=== PATIENT | female | born 1935 | race Caucasian/White ===

== ENCOUNTER 2018-07-28 17:10 | Emergency (ER) | payer OTHER ==
--- NOTE | 2018-07-28 17:24 | PDOC ---
Rapid Medical Evaluation Time Seen by Provider: 07/28/18 17:22 Medical Evaluation: Allergies Allergy/AdvReac Type Severity Reaction Status Date / Time No Known Allergies Allergy Verified 07/28/18 17:20 07/28/18 17:22 HPI: sent by PCP Nathaniel Camarena for :resistent bacteria in urine IV abx? " PE: No distress ORDERS: Septic work up Discharge Disposition - Diagnosis UTI (urinary tract infection) - Referrals Referrals: Nathaniel Camarena MD [Primary Care Provider] - - Patient Instructions - Post Discharge Activity
[2018-07-28 17:42] VITALS: BP 119/68; PULSE 78; TEMP 98.2; BMI 24.6
--- NOTE | 2018-07-28 18:34 | PDOC ---
History of Present Illness - General Chief Complaint: Urinary Problem Stated Complaint: REF. BY DOCTOR Time Seen by Provider: 07/28/18 17:22 History Source: Patient, Family Exam Limitations: No Limitations - History of Present Illness Initial Comments: 07/28/18 18:34 82 year old woman with a history of HTN, HLD, DM, cholecystectomy who was sent to ED by PCP with reportedly resistant urine bacteria requiring IV abx. Patient has been afebrile and asymptomatic without abdominal pain, chest pain, shortness of breath, nausea, vomtiing, diarrhea ,constipatn. She does have occasional urinary incontinence and wears a diaper. She lives with her son and has no other complaints. Daughter reports that urine founds were reported after a routine follow up PCP appointment. Per doctors workup brought in by patient: found to have esbl susceptible to ertapenem, imipenem and pip/tazo. urine showed nitrite positive - 6 days ago urine lab Past History - Past Medical History Allergies/Adverse Reactions: Allergies Allergy/AdvReac Type Severity Reaction Status Date / Time No Known Allergies Allergy Verified 07/28/18 17:34 Home Medications: Ambulatory Orders Aspirin [ASA -] 81 mg PO DAILY 03/10/13 Meclizine HCl [Antivert -] 25 mg PO TID PRN 03/10/13 Metoprolol Succinate [Toprol XL -] 50 mg PO DAILY 03/10/13 Acetaminophen [Tylenol -] 500 mg PO Q4H PRN 04/17/15 Calcium Carbonate/Vitamin D3 [Calcium 500 + Vit D 200 Caplet] 1 each PO DAILY Canagliflozin [Invokana] 300 mg PO DAILY 04/17/15 Ergocalciferol (Vitamin D2) [Vitamin D] 50,000 unit PO WEEKLY 04/17/15 Escitalopram Oxalate [Lexapro -] 5 mg PO DAILY 04/17/15 Febuxostat [Uloric -] 40 mg PO DAILY 04/17/15 Glipizide Xl [Glucotrol Xl -] 5 mg PO DAILY 04/17/15 Linagliptin [Tradjenta] 5 mg PO DAILY 04/17/15 Olmesartan Medoxomil [Benicar -] 20 mg PO DAILY 04/17/15 Levofloxacin [Levaquin] 750 mg PO DAILY #14 tablet 04/27/15 Oxycodone HCl 5 mg PO TID PRN #10 tablet 04/27/15 metroNIDAZOLE [Flagyl -] 500 mg PO TID #42 tablet 04/27/15 Cardiac Disorders: Yes COPD: No Diabetes: Yes HTN: Yes Hypercholesterolemia: Yes - Surgical History Cholecystectomy: Yes - Immunization History Immunization Up to Date: Yes - Suicide/Smoking/Psychosocial Hx Smoking History: Never smoked Have you smoked in the past 12 months: No Hx Alcohol Use: No Drug/Substance Use Hx: No Substance Use Type: None Review of Systems - Review of Systems Able to Perform ROS?: Yes Comments:: 07/28/18 22:23 GENERAL/CONSTITUTIONAL: No fever or chills. No weakness. HEAD, EYES, EARS, NOSE AND THROAT: No change in vision. No ear pain or discharge. No sore throat. CARDIOVASCULAR: No chest pain or shortness of breath RESPIRATORY: No cough, wheezing, or hemoptysis. GASTROINTESTINAL: No nausea, vomiting, diarrhea or constipation. GENITOURINARY: No dysuria, frequency, or change in urination. MUSCULOSKELETAL: No joint or muscle swelling or pain. No neck or back pain. SKIN: No rash NEUROLOGIC: No headache, vertigo, loss of consciousness, or change in strength/ sensation. ENDOCRINE: No increased thirst. No abnormal weight change HEMATOLOGIC/LYMPHATIC: No anemia, easy bleeding, or history of blood clots. ALLERGIC/IMMUNOLOGIC: No hives or skin allergy Is the patient limited Irish proficient: No *Physical Exam - Vital Signs Last Vital Signs Temp Pulse Resp BP Pulse Ox 98.2 F 78 16 119/68 97 07/28/18 17:34 07/28/18 17:34 07/28/18 17:34 07/28/18 17:34 07/28/18 17:34 - Physical Exam Comments: 07/28/18 22:24 GENERAL: Awake, alert, and fully oriented, in no acute distress HEAD: No signs of trauma, normocephalic, atraumatic EYES: PERRLA, EOMI, sclera anicteric, conjunctiva clear ENT: oropharynx clear without exudates. Moist mucosa NECK: Normal ROM, supple LUNGS: No distress, speaks full sentences, clear to auscultation bilaterally HEART: Regular rate and rhythm, normal S1 and S2, no murmurs, rubs or gallops, peripheral pulses normal and equal bilaterally. ABDOMEN: Soft, nontender, normoactive bowel sounds. No guarding, no rebound. No masses EXTREMITIES : Normal inspection, Normal range of motion, no edema. No clubbing or cyanosis. NEUROLOGICAL: Cranial nerves II through XII grossly intact. Normal speech, no focal sensorimotor deficits SKIN: Warm, Dry, normal turgor, no rashes or lesions noted ED Treatment Course - LABORATORY CBC & Chemistry Diagram: 07/28/18 18:25 07/28/18 18:25 Medical Decision Making - Medical Decision Making 07/28/18 20:44 82 year old woman with a history of HTN, HLD, DM, cholecystectomy who was sent to ED by PCP with reportedly resistant urine bacteria requiring IV abx. Patient has been afebrile and asymptomatic without abdominal pain, chest pain, shortness of breath, nausea, vomtiing, diarrhea ,constipatn. She does have occasional urinary incontinence and wears a diaper. She lives with her son and has no other complaints. Daughter reports that urine founds were reported after a routine follow up PCP appointment. ED Course: patient with known uti cbc, cmp, vbg, lactic, blood cultures lactic elevated to 2.8 will 1L ns pending urine 07/28/18 22:22 urine negative patient with unremarkable workup stable for sdischarge and follow up outpatient *DC/Admit/Observation/Transfer Diagnosis at time of Disposition: Urinary problem - Discharge Dispostion Disposition: HOME Condition at time of disposition: Stable Decision to Admit order: No - Referrals Referrals: Nathaniel Camarena MD [Primary Care Provider] - - Patient Instructions Additional Instructions: You were evaluated in the ED for concern over urinary tract infection. You were evaluated in the ED and had a urine test that did not show and infection and blood tests that were largely unremarkable. Please follow up with your PCP within 1 week and bring a copy of your lab results. Return to the ED if you experience blood in the urine, fevers, profuse diarrhea , chest pain, or shortness of breath. - Post Discharge Activity Forms/Work/School Notes: Back to Work
[2018-07-28 19:06] LABS: VENOUS PC02 41.4 mmHg (41-51); VENOUS PH 7.37 (7.31-7.41); VENOUS PO2 45.6 mmHg (30-40)
[2018-07-28 19:09] LABS: BASO % 0.8 % (0-2.0); EOS % 8.2 % (0-4.5); HEMATOCRIT 36.7 % (32.4-45.2); HEMOGLOBIN 12.1 GM/dL (10.7-15.3); LYMPH % 33.5 % (8-40); MCH 30.2 pg (25.7-33.7); MCHC 33.1 g/dl (32.0-36.0); MEAN CELL VOLUME 91.3 fl (80-96); MEAN PLT VOLUME 8.2 fl (7.5-11.1); MONO % 13.3 % (3.8-10.2); NEUT % 44.2 % (42.8-82.8); PLATELET COUNT 317 K/MM3 (134-434); RBC 4.02 M/mm3 (3.60-5.2); RDW 13.9 % (11.6-15.6); WHITE BLOOD COUNT 8.7 K/mm3 (4.0-10.0)
[2018-07-28 19:36] LABS: INR 0.97 (0.83-1.09); PROTHROMBIN TIME (PATIENT) 11.4 SEC (9.7-13.0)
[2018-07-28 19:39] LABS: ACTIVATED PTT 29.3 SECONDS (25.2-36.5)
[2018-07-28 20:12] LABS: ALBUMIN 3.6 g/dl (3.4-5.0); ALK PHOS 107 U/L (45-117); ANION GAP 7 MMOL/L (8-16); BILIRUBIN,TOTAL 0.2 mg/dL (0.2-1); BLOOD UREA NITROGEN 17 mg/dL (7-18); CALCIUM 9.9 mg/dL (8.5-10.1); CHLORIDE 109 mmol/L (98-107); CO2 25 mmol/L (21-32); CREATININE 1.2 mg/dL (0.55-1.3); GLUCOSE,RANDOM 128 mg/dL (74-106); POTASSIUM 4.1 mmol/L (3.5-5.1); SGOT/AST 14 U/L (15-37); SGPT/ALT 20 U/L (13-61); SODIUM 141 mmol/L (136-145); TOT PROT 7.5 g/dl (6.4-8.2)
[2018-07-28] MEDS ORDERED: SODIUM CHLORIDE 1,000 ML IV SCH (20:45)
--- NOTE | 2018-07-28 20:53 | PDOC ---
Documentation entered by Jessica Ayon SCRIBE, acting as scribe for Harry Winston MD. Harry Winston MD: This documentation has been prepared by the Gabo moreira Daisy, SCRIBE, under my direction and personally reviewed by me in its entirety. I confirm that the documentation accurately reflects all work, treatment, procedures, and medical decision making performed by me. Attending Attestation - Resident Resident Name: Leticia West - ED Attending Attestation I have performed the following: I have examined & evaluated the patient, The case was reviewed & discussed with the resident, I agree w/resident's findings & plan - HPI HPI: 07/28/18 19:22 The patient is a 82 YOF who was brought in by her daughter for further evaluation of urine tests earlier today done by PCP. As per daughter, patient had a routine visit with Dr. Armstrong and was told she had resistant bacteria in the urine. She was sent to the ED for IV antibiotics. Daughter reports the patient has urinary incontinence and wears diapers. Allergies: NKDA - Physicial Exam PE: 07/28/18 20:51 Patient is awake and alert, well-appearing, in no distress Normocephalic, atraumatic PERRLA, EOMI CTA RRR Abdomen is soft, nontender, nondistended, no CVA tenderness bilaterally - Medical Decision Making 07/28/18 20:52 Patient is an 82-year-old female who presents with nitrite positive UTI from the PMDs office noted to be producing Escherichia coli which is ESBL positive. Patient is afebrile and asymptomatic. BUN/creatinine is within normal limit. Will obtain repeat UA/culture. Will reassess 07/28/18 22:26 Urinalysis is within normal limit without evidence of pyuria bacteriuria. CBC reveals no evidence of leukocytosis and patient remains asymptomatic. At this time, I do not believe treatment with broad-spectrum antibiotics is indicated. Will discharge.
[2018-07-28 21:43] LABS: URINE APPEARANCE CLEAR; URINE BILIRUBIN NEGATIVE (NEGATIVE); URINE COLOR YELLOW; URINE GLUCOSE (UA) 3+ (NEGATIVE); URINE KETONE NEGATIVE (NEGATIVE); URINE LEUK ESTERASE NEGATIVE (NEGATIVE); URINE NITRITE NEGATIVE (NEGATIVE); URINE PROTEIN NEGATIVE (NEGATIVE); URINE UROBILINOGEN 0.2 mg/dL (0.2-1.0)
--- NOTE | 2018-07-29 17:17 | EKG ---
Test Reason : Blood Pressure : / mmHG Vent. Rate : 074 BPM Atrial Rate : 074 BPM P-R Int : 184 ms QRS Dur : 080 ms QT Int : 396 ms P-R-T Axes : 046 -11 055 degrees QTc Int : 439 ms NORMAL SINUS RHYTHM NONSPECIFIC ST AND T WAVE ABNORMALITY ABNORMAL ECG WHEN COMPARED WITH ECG OF 31-JUL-2015 22:34, NO SIGNIFICANT CHANGE WAS FOUND Confirmed by DANIELA JEFFREY MD ([id number]) on 07/29/2018 5:17:08 PM Referred By: Confirmed By:DANIELA JEFFREY MD
== END 2018-07-28 22:44 | disposition home or self-care (01) ==
LOC: JER 17:10
DX: R82.71 Bacteriuria (principal); B96.89 Other specified bacterial agents as the cause of diseases classified elsewhere; I10 Essential (primary) hypertension; E11.9 Type 2 diabetes mellitus without complications; Z79.84 Long term (current) use of oral hypoglycemic drugs; E78.00 Pure hypercholesterolemia, unspecified
CPT/HCPCS: 36415; 71045-TC-FY; 80053; 81003; 82803; 83605; 84484; 85025; 85610; 85730; 87040; 87086; 93005; 93010; 99284-25; J7030

== ENCOUNTER 2021-10-18 08:31 | Inpatient (IN) | payer OTHER ==
[2021-10-18 09:17] LABS: BASO % 0.6 % (0-2.0); EOS % 1.6 % (0-4.5); HEMATOCRIT 37.2 % (32.4-45.2); HEMOGLOBIN 12.2 GM/dL (10.7-15.3); LYMPH % 13.9 % (8-40); MCH 30.1 pg (25.7-33.7); MCHC 32.7 g/dl (32.0-36.0); MEAN CELL VOLUME 91.9 fl (80-96); MEAN PLT VOLUME 7.6 fl (7.5-11.1); MONO % 9.8 % (3.8-10.2); NEUT % 74.1 % (42.8-82.8); PLATELET COUNT 378 10^3/uL (134-434); RBC 4.05 M/mm3 (3.60-5.2); RDW 17.2 % (11.6-15.6); WHITE BLOOD COUNT 8.6 K/mm3 (4.0-10.0)
[2021-10-18 09:21] LABS: INR 1.06 (0.83-1.09); PROTHROMBIN TIME (PATIENT) 12.2 SEC (9.7-13.0)
[2021-10-18 09:24] LABS: ACTIVATED PTT 28.8 SECONDS (25.2-36.5)
[2021-10-18 09:47] LABS: ALBUMIN 2.9 g/dl (3.4-5.0); BLOOD UREA NITROGEN 12.7 mg/dL (7-18); CALCIUM 9.5 mg/dL (8.5-10.1)
[2021-10-18 09:51] LABS: CREATININE 0.9 mg/dL (0.55-1.3)
[2021-10-18 09:52] LABS: BILIRUBIN,TOTAL 0.6 mg/dL (0.2-1); TOT PROT 7.7 g/dl (6.4-8.2)
[2021-10-18] MEDS ORDERED: ACETAMINOPHEN 1000 MG/100 ML BAG IVPB ONE (10:27)
[2021-10-18] MEDS ORDERED: ACETAMINOPHEN INJECTION 100 ML IVPB ONE (10:49)
[2021-10-18 10:58] LABS: EPI CELLS 6 /uL (0-25.1); HYALINE CASTS 0 /uL (0-3.1); PH,URINE 6.5 (5.0-8.0); URINE APPEARANCE CLEAR; URINE BACTERIA 5 /uL (0-1359); URINE BILIRUBIN NEGATIVE (NEGATIVE); URINE COLOR YELLOW; URINE GLUCOSE (UA) 3+ (NEGATIVE); URINE KETONE NEGATIVE (NEGATIVE); URINE LEUK ESTERASE TRACE (NEGATIVE); URINE NITRITE NEGATIVE (NEGATIVE); URINE PROTEIN NEGATIVE (NEGATIVE); URINE RBC 23 /uL (0-23.9); URINE WBC 79 /uL (0-25.8)
[2021-10-18 11:28] LABS: BLOOD UREA NITROGEN 12.3 mg/dL (7-18)
[2021-10-18 11:31] LABS: CREATININE 0.7 mg/dL (0.55-1.3)
[2021-10-18] MEDS ORDERED: ACETAMINOPHEN 325 MG TABLET (FP) PO PRN (16:58)
[2021-10-18] MEDS ORDERED: PNEUMOC 20-VAL CONJ-DIP CRM/PF 0.5 ML SYRINGE IM ONE (17:30)
[2021-10-18] MEDS: HEPARIN NA (PORCINE) 5,000 UNITS/ML 1ML VIAL SQ SCH (22:19)
[2021-10-18] MEDS: ROSUVASTATIN CA 5 MG TABLET PO SCH (22:19)
[2021-10-18] MEDS: INSULIN SLIDING SCALE (NOVOLOG) 1 VIAL SQ SCH (22:20)
[2021-10-19] MEDS: metFORMIN HCL 500 MG TABLET (FP) PO SCH ×2 (06:52→17:43)
[2021-10-19] MEDS: glipiZIDE-XL 10 MG TAB.ER.24 (FP) PO SCH (06:54)
[2021-10-19] MEDS: INSULIN SLIDING SCALE (NOVOLOG) 1 VIAL SQ SCH ×4 (07:23→22:34)
[2021-10-19 09:03] LABS: HEMATOCRIT 34.2 % (32.4-45.2); HEMOGLOBIN 11.5 GM/dL (10.7-15.3); MCH 30.4 pg (25.7-33.7); MCHC 33.6 g/dl (32.0-36.0); MEAN CELL VOLUME 90.6 fl (80-96); MEAN PLT VOLUME 7.4 fl (7.5-11.1); PLATELET COUNT 365 10^3/uL (134-434); RBC 3.77 M/mm3 (3.60-5.2); RDW 17.3 % (11.6-15.6); WHITE BLOOD COUNT 6.8 K/mm3 (4.0-10.0)
[2021-10-19 09:31] LABS: CALCIUM 8.8 mg/dL (8.5-10.1)
[2021-10-19 09:32] LABS: ALBUMIN 2.9 g/dl (3.4-5.0); BLOOD UREA NITROGEN 12.2 mg/dL (7-18)
[2021-10-19 09:34] LABS: BILIRUBIN,TOTAL 0.5 mg/dL (0.2-1)
[2021-10-19 09:35] LABS: CREATININE 0.8 mg/dL (0.55-1.3)
[2021-10-19] MEDS: ASPIRIN COATED 81 MG TABLET.EC PO SCH (10:36)
[2021-10-19] MEDS: ESCITALOPRAM OXALATE 10 MG TABLET PO SCH (10:36)
[2021-10-19] MEDS: PANTOPRAZOLE 40 MG TABLET PO SCH (10:36)
[2021-10-19] MEDS: LOSARTAN POTASSIUM 50 MG TABLET PO SCH (10:36)
[2021-10-19] MEDS: HEPARIN NA (PORCINE) 5,000 UNITS/ML 1ML VIAL SQ SCH ×2 (10:37→22:33)
[2021-10-19] MEDS: metoPROLOL SUCCINATE 25 MG TAB.SR.24H (FP) PO SCH (10:48)
[2021-10-19] MEDS: ROSUVASTATIN CA 5 MG TABLET PO SCH (22:33)
[2021-10-20 08:08] LABS: BASO % 0.7 % (0-2.0); EOS % 4.4 % (0-4.5); HEMATOCRIT 33.1 % (32.4-45.2); HEMOGLOBIN 11.3 GM/dL (10.7-15.3); LYMPH % 30.3 % (8-40); MCH 30.8 pg (25.7-33.7); MCHC 34.1 g/dl (32.0-36.0); MEAN CELL VOLUME 90.3 fl (80-96); MEAN PLT VOLUME 7.6 fl (7.5-11.1); NEUT % 51.6 % (42.8-82.8); PLATELET COUNT 361 10^3/uL (134-434); RBC 3.67 M/mm3 (3.60-5.2); RDW 17.1 % (11.6-15.6); WHITE BLOOD COUNT 6.6 K/mm3 (4.0-10.0)
[2021-10-20] MEDS: INSULIN SLIDING SCALE (NOVOLOG) 1 VIAL SQ SCH ×4 (08:08→21:04)
[2021-10-20 08:31] LABS: ALBUMIN 2.9 g/dl (3.4-5.0); BLOOD UREA NITROGEN 11.5 mg/dL (7-18); CALCIUM 8.8 mg/dL (8.5-10.1)
[2021-10-20 08:35] LABS: CREATININE 0.8 mg/dL (0.55-1.3)
[2021-10-20 08:36] LABS: BILIRUBIN,TOTAL 0.5 mg/dL (0.2-1); TOT PROT 6.9 g/dl (6.4-8.2)
[2021-10-20] MEDS: PANTOPRAZOLE 40 MG TABLET PO SCH (10:01)
[2021-10-20] MEDS: LOSARTAN POTASSIUM 50 MG TABLET PO SCH (10:01)
[2021-10-20] MEDS: HEPARIN NA (PORCINE) 5,000 UNITS/ML 1ML VIAL SQ SCH ×2 (10:01→21:03)
[2021-10-20] MEDS: metoPROLOL SUCCINATE 25 MG TAB.SR.24H (FP) PO SCH (10:01)
[2021-10-20] MEDS: ESCITALOPRAM OXALATE 10 MG TABLET PO SCH (10:01)
[2021-10-20] MEDS: ASPIRIN COATED 81 MG TABLET.EC PO SCH (10:01)
[2021-10-20] MEDS: glipiZIDE-XL 10 MG TAB.ER.24 (FP) PO SCH (10:04)
[2021-10-20] MEDS: metFORMIN HCL 500 MG TABLET (FP) PO SCH ×2 (10:04→16:12)
[2021-10-20] MEDS ORDERED: POTASSIUM CHLORIDE TABS 20 MEQ TABLET.ER (FP) PO ONE (15:32)
[2021-10-20] MEDS: ROSUVASTATIN CA 5 MG TABLET PO SCH (21:03)
[2021-10-21] MEDS: INSULIN SLIDING SCALE (NOVOLOG) 1 VIAL SQ SCH ×3 (06:44→16:36)
[2021-10-21] MEDS: metFORMIN HCL 500 MG TABLET (FP) PO SCH ×2 (06:44→16:35)
[2021-10-21 07:17] LABS: CALCIUM 9.2 mg/dL (8.5-10.1)
[2021-10-21 07:18] LABS: ALBUMIN 2.9 g/dl (3.4-5.0); BLOOD UREA NITROGEN 10.6 mg/dL (7-18)
[2021-10-21 07:21] LABS: CREATININE 1.1 mg/dL (0.55-1.3)
[2021-10-21 07:23] LABS: BILIRUBIN,TOTAL 0.3 mg/dL (0.2-1); TOT PROT 6.8 g/dl (6.4-8.2)
[2021-10-21 08:44] VITALS: RESP 18
[2021-10-21] MEDS: ESCITALOPRAM OXALATE 10 MG TABLET PO SCH (10:11)
[2021-10-21] MEDS: LOSARTAN POTASSIUM 50 MG TABLET PO SCH (10:11)
[2021-10-21] MEDS: ASPIRIN COATED 81 MG TABLET.EC PO SCH (10:11)
[2021-10-21] MEDS: metoPROLOL SUCCINATE 25 MG TAB.SR.24H (FP) PO SCH (10:12)
[2021-10-21] MEDS: PANTOPRAZOLE 40 MG TABLET PO SCH (10:12)
[2021-10-21] MEDS: HEPARIN NA (PORCINE) 5,000 UNITS/ML 1ML VIAL SQ SCH (10:12)
[2021-10-21 15:22] VITALS: BP 115/66; PULSE 75; TEMP 98.1
[2021-10-21 16:30] VITALS: BMI 18.1
== END 2021-10-21 18:27 | disposition home or self-care (01) | DRG 639 ==
LOC: JER 08:31 → JERBED 11:30 → J4W 15:41 → OBSVTOIN 16:55
PROVIDERS: ADMIT Family Medicine; ATTEND Family Medicine
DX: E11.649 Type 2 diabetes mellitus with hypoglycemia without coma (principal); E11.8 Type 2 diabetes mellitus with unspecified complications; N18.30 Chronic kidney disease, stage 3 unspecified; I12.9 Hypertensive chronic kidney disease with stage 1 through stage 4 chronic kidney disease, or unspecified chronic kidney disease; E11.22 Type 2 diabetes mellitus with diabetic chronic kidney disease; E78.00 Pure hypercholesterolemia, unspecified; E78.5 Hyperlipidemia, unspecified; R26.81 Unsteadiness on feet; R55 Syncope and collapse
CPT/HCPCS: 0241U-QW; 36415; 70450-TC; 71045-TC-FY; 72125-TC; 72170-TC-FY; 80048; 80053; 81003; 82550; 82962; 83036; 83880; 84439; 84443; 84484; 85025; 85027; 85610; 85730; 87086; 93005; 93010; 97116-GP; 97162-GP; 99285-25; G0378; J1644

== ENCOUNTER 2022-02-03 10:59 | Inpatient (IN) | payer OTHER ==
[2022-02-03] MEDS ORDERED: LACTATED RINGERS SOLUTION 1000 ML INFUS.BAG IV ONE (11:47)
[2022-02-03 13:04] LABS: BASO % 0.3 % (0-2.0); EOS % 0.1 % (0-4.5); HEMATOCRIT 36.5 % (32.4-45.2); HEMOGLOBIN 12.1 GM/dL (10.7-15.3); LYMPH % 10.5 % (8-40); MCH 30.3 pg (25.7-33.7); MCHC 33.1 g/dl (32.0-36.0); MEAN CELL VOLUME 91.4 fl (80-96); MEAN PLT VOLUME 8.4 fl (7.5-11.1); MONO % 8.5 % (3.8-10.2); NEUT % 80.6 % (42.8-82.8); PLATELET COUNT 412 10^3/uL (134-434); RDW 14.7 % (11.6-15.6); WHITE BLOOD COUNT 19.8 K/mm3 (4.0-10.0)
[2022-02-03 13:14] LABS: INR 1.13 (0.83-1.09)
[2022-02-03 13:16] LABS: ACTIVATED PTT 29.9 SECONDS (25.2-36.5)
[2022-02-03 13:21] LABS: CALCIUM 9.9 mg/dL (8.5-10.1)
[2022-02-03 13:22] LABS: ALBUMIN 3.4 g/dl (3.4-5.0); BLOOD UREA NITROGEN 12.3 mg/dL (7-18)
[2022-02-03 13:25] LABS: CREATININE 0.9 mg/dL (0.55-1.3)
[2022-02-03 13:27] LABS: BILIRUBIN,TOTAL 0.6 mg/dL (0.2-1); TOT PROT 8.3 g/dl (6.4-8.2)
[2022-02-03 17:27] LABS: VENOUS BASE EXCESS -0.9 mmol/L (-2-2); VENOUS O2 SATURATION 72.7 % (70-80); VENOUS PCO2 41.7 mmHg (38-52); VENOUS PH 7.382 (7.310-7.410)
[2022-02-03 17:31] LABS: EPI CELLS 11 /uL (0-25.1); HYALINE CASTS 0 /uL (0-3.1); URINE APPEARANCE CLEAR; URINE BACTERIA 23 /uL (0-1359); URINE BILIRUBIN NEGATIVE (NEGATIVE); URINE COLOR YELLOW; URINE GLUCOSE (UA) 3+ (NEGATIVE); URINE KETONE 1+ (NEGATIVE); URINE LEUK ESTERASE NEGATIVE (NEGATIVE); URINE NITRITE NEGATIVE (NEGATIVE); URINE PROTEIN 1+ (NEGATIVE); URINE RBC 30 /uL (0-23.9)
[2022-02-03] MEDS ORDERED: VANCOMYCIN 1 GM in D5W (PRE-DOCKED) 1,000 MG/250 ML IVPB ONE (17:41)
[2022-02-03] MEDS ORDERED: PIPERACILLIN/TAZOB 3.375 GM 3.375 GM in DEXTROSE 5%-WATER - 50 ML IVPB ONE (17:42)
[2022-02-03] MEDS ORDERED: ACETAMINOPHEN 325 MG TABLET (FP) PO PRN (18:03)
[2022-02-03] MEDS ORDERED: METOPROLOL TARTRATE 25 MG TABLET (FP) PO ONE (18:03)
[2022-02-03] MEDS ORDERED: METOPROLOL TARTRATE 25 MG TABLET (FP) ONE (19:04)
[2022-02-03] MEDS ORDERED: VANCOMYCIN/WATER FOR INJ (PEG) 1,000 MG/200 ML BAG IVPB ONE (19:05)
[2022-02-03] MEDS ORDERED: PIPERACILLIN/TAZOB 3.375 GM 3.375 GM/50 ML BAG IVPB ONE (19:05)
[2022-02-03] MEDS: ROSUVASTATIN CA 5 MG TABLET PO SCH (23:46)
[2022-02-03] MEDS: HEPARIN NA (PORCINE) 5,000 UNITS/ML 1ML VIAL SQ SCH (23:46)
[2022-02-03] MEDS: INSULIN SLIDING SCALE (NOVOLOG) 1 VIAL SQ SCH (23:47)
[2022-02-04] MEDS: INSULIN SLIDING SCALE (NOVOLOG) 1 VIAL SQ SCH ×4 (06:25→23:13)
[2022-02-04] MEDS: metFORMIN HCL 500 MG TABLET (FP) PO SCH ×2 (06:27→17:40)
[2022-02-04] MEDS ORDERED: BROMOCRIPTINE MESYLATE 0.8 MG PO SCH (10:00)
[2022-02-04] MEDS ORDERED: PATIENT'S OWN MEDICATION (NON-FORMULARY) (Mirabegron [Myrbetriq] 25 MG Tab.Er.24h) PO SCH (10:00)
[2022-02-04] MEDS: ASPIRIN 81 MG CHEWABLE TABLETS PO SCH (10:19)
[2022-02-04] MEDS: HEPARIN NA (PORCINE) 5,000 UNITS/ML 1ML VIAL SQ SCH ×2 (10:19→21:36)
[2022-02-04] MEDS: PANTOPRAZOLE 40 MG TABLET PO SCH (10:19)
[2022-02-04] MEDS: ESCITALOPRAM OXALATE 10 MG TABLET PO SCH (10:20)
[2022-02-04] MEDS: CHOLECALCIFEROL (VIT D3) 1,000 UNIT (25 MCG) TABLET PO SCH (10:20)
[2022-02-04] MEDS: metoPROLOL SUCCINATE 25 MG TAB.SR.24H (FP) PO SCH (10:20)
[2022-02-04] MEDS: FERROUS SO4 325 MG TABLET (FP) PO SCH (10:20)
[2022-02-04] MEDS: LOSARTAN POTASSIUM 50 MG TABLET PO SCH (10:20)
[2022-02-04 10:36] LABS: BASO % 0.3 % (0-2.0); EOS % 0.2 % (0-4.5); HEMATOCRIT 35.2 % (32.4-45.2); HEMOGLOBIN 11.6 GM/dL (10.7-15.3); LYMPH % 7.6 % (8-40); MCH 30.1 pg (25.7-33.7); MEAN CELL VOLUME 91.2 fl (80-96); MEAN PLT VOLUME 8.3 fl (7.5-11.1); MONO % 7.2 % (3.8-10.2); NEUT % 84.7 % (42.8-82.8); PLATELET COUNT 408 10^3/uL (134-434); RBC 3.86 M/mm3 (3.60-5.2); WHITE BLOOD COUNT 18.8 K/mm3 (4.0-10.0)
[2022-02-04 11:08] LABS: CALCIUM 9.4 mg/dL (8.5-10.1)
[2022-02-04 11:09] LABS: ALBUMIN 2.9 g/dl (3.4-5.0); BLOOD UREA NITROGEN 13.4 mg/dL (7-18); MAGNESIUM 1.9 mg/dL (1.8-2.4)
[2022-02-04 11:10] LABS: CREATININE 0.7 mg/dL (0.55-1.3)
[2022-02-04 11:11] LABS: BILIRUBIN,TOTAL 0.6 mg/dL (0.2-1); TOT PROT 7.4 g/dl (6.4-8.2)
[2022-02-04] MEDS: CEFTRIAXONE 1 GM in DEXTROSE 5%-WATER - 50 ML IVPB SCH (15:24)
[2022-02-04 15:36] VITALS: BMI 16.6
[2022-02-04] MEDS ORDERED: SODIUM CHLORIDE 0.45% 1,000 ML IV SCH (16:15)
[2022-02-04 18:27] VITALS: RESP 18
[2022-02-04] MEDS: ROSUVASTATIN CA 5 MG TABLET PO SCH (21:36)
[2022-02-05] MEDS: INSULIN SLIDING SCALE (NOVOLOG) 1 VIAL SQ SCH ×4 (06:14→21:58)
[2022-02-05] MEDS: metFORMIN HCL 500 MG TABLET (FP) PO SCH ×2 (06:15→17:26)
[2022-02-05] MEDS: metoPROLOL SUCCINATE 25 MG TAB.SR.24H (FP) PO SCH (09:38)
[2022-02-05] MEDS: CHOLECALCIFEROL (VIT D3) 1,000 UNIT (25 MCG) TABLET PO SCH (09:38)
[2022-02-05] MEDS: ESCITALOPRAM OXALATE 10 MG TABLET PO SCH (09:38)
[2022-02-05] MEDS: ASPIRIN 81 MG CHEWABLE TABLETS PO SCH (09:39)
[2022-02-05] MEDS: LOSARTAN POTASSIUM 50 MG TABLET PO SCH (09:39)
[2022-02-05] MEDS: PANTOPRAZOLE 40 MG TABLET PO SCH (09:39)
[2022-02-05] MEDS: FERROUS SO4 325 MG TABLET (FP) PO SCH (09:39)
[2022-02-05] MEDS: CEFTRIAXONE 1 GM in DEXTROSE 5%-WATER - 50 ML IVPB SCH (09:39)
[2022-02-05] MEDS: HEPARIN NA (PORCINE) 5,000 UNITS/ML 1ML VIAL SQ SCH ×2 (09:42→21:54)
[2022-02-05 11:09] LABS: ALBUMIN 2.7 g/dl (3.4-5.0); BLOOD UREA NITROGEN 18.6 mg/dL (7-18); CALCIUM 9.4 mg/dL (8.5-10.1)
[2022-02-05 11:12] LABS: CREATININE 0.7 mg/dL (0.55-1.3)
[2022-02-05 11:14] LABS: BILIRUBIN,TOTAL 0.3 mg/dL (0.2-1); TOT PROT 6.9 g/dl (6.4-8.2)
[2022-02-05] MEDS: ROSUVASTATIN CA 5 MG TABLET PO SCH (21:53)
[2022-02-06] MEDS: metFORMIN HCL 500 MG TABLET (FP) PO SCH (06:14)
[2022-02-06] MEDS: INSULIN SLIDING SCALE (NOVOLOG) 1 VIAL SQ SCH ×2 (06:16→11:37)
[2022-02-06 08:12] LABS: EPI CELLS 2 /uL (0-25.1); HYALINE CASTS 1 /uL (0-3.1); PH,URINE 5.5 (5.0-8.0); URINE APPEARANCE CLOUDY; URINE BACTERIA 269 /uL (0-1359); URINE BILIRUBIN NEGATIVE (NEGATIVE); URINE COLOR YELLOW; URINE GLUCOSE (UA) 3+ (NEGATIVE); URINE KETONE 1+ (NEGATIVE); URINE LEUK ESTERASE 2+ (NEGATIVE); URINE NITRITE NEGATIVE (NEGATIVE); URINE PROTEIN 2+ (NEGATIVE); URINE RBC 17 /uL (0-23.9); URINE WBC 1444 /uL (0-25.8)
[2022-02-06 09:13] LABS: EOS % 3.9 % (0-4.5); HEMATOCRIT 31.7 % (32.4-45.2); HEMOGLOBIN 10.7 GM/dL (10.7-15.3); LYMPH % 17.7 % (8-40); MCH 30.5 pg (25.7-33.7); MCHC 33.8 g/dl (32.0-36.0); MEAN CELL VOLUME 90.2 fl (80-96); MEAN PLT VOLUME 7.9 fl (7.5-11.1); MONO % 9.8 % (3.8-10.2); NEUT % 67.6 % (42.8-82.8); PLATELET COUNT 422 10^3/uL (134-434); RBC 3.51 M/mm3 (3.60-5.2); RDW 14.4 % (11.6-15.6); WHITE BLOOD COUNT 7.3 K/mm3 (4.0-10.0)
[2022-02-06 09:33] VITALS: PULSE 90
[2022-02-06] MEDS: LOSARTAN POTASSIUM 50 MG TABLET PO SCH (10:06)
[2022-02-06] MEDS: metoPROLOL SUCCINATE 25 MG TAB.SR.24H (FP) PO SCH (10:07)
[2022-02-06] MEDS: ESCITALOPRAM OXALATE 10 MG TABLET PO SCH (10:07)
[2022-02-06] MEDS: FERROUS SO4 325 MG TABLET (FP) PO SCH (10:07)
[2022-02-06] MEDS: CHOLECALCIFEROL (VIT D3) 1,000 UNIT (25 MCG) TABLET PO SCH (10:07)
[2022-02-06] MEDS: PANTOPRAZOLE 40 MG TABLET PO SCH (10:07)
[2022-02-06] MEDS: ASPIRIN 81 MG CHEWABLE TABLETS PO SCH (10:08)
[2022-02-06] MEDS: HEPARIN NA (PORCINE) 5,000 UNITS/ML 1ML VIAL SQ SCH (10:08)
[2022-02-06] MEDS: CEFTRIAXONE 1 GM in DEXTROSE 5%-WATER - 50 ML IVPB SCH (10:08)
[2022-02-06 15:15] VITALS: BP 118/67; TEMP 98.3
== END 2022-02-06 17:00 | disposition home health service (06) | DRG 605 ==
LOC: JER 10:59 → JERBED 19:16 → J5S 23:36
PROVIDERS: ADMIT Internal Medicine; ATTEND Family Medicine
DX: S70.02XA Contusion of left hip, initial encounter (principal); I10 Essential (primary) hypertension; E78.5 Hyperlipidemia, unspecified; E11.9 Type 2 diabetes mellitus without complications; D72.829 Elevated white blood cell count, unspecified; R31.9 Hematuria, unspecified; R80.9 Proteinuria, unspecified; W18.39XA Other fall on same level, initial encounter; Y92.098 Other place in other non-institutional residence as the place of occurrence of the external cause; Z85.41 Personal history of malignant neoplasm of cervix uteri; Z79.82 Long term (current) use of aspirin
CPT/HCPCS: 0241U-QW; 36415; 70450-TC; 71045-TC-FY; 71275-TC; 72125-TC; 72170-TC-FY; 72192-TC; 76775-TC; 80053; 81003; 82010; 82550; 82570; 82803; 82962; 83036; 83605; 83735; 84156; 84443; 84484; 85025; 85610; 85730; 86850; 86900; 86901; 87040; 87086; 93005; 93010; 97116-GP; 97161-GP; 99285-25; C9803-CS; J1644; U0003; U0005

== ENCOUNTER 2022-04-29 09:49 | Emergency (ER) | payer OTHER ==
[2022-04-29 10:08] VITALS: RESP 18; TEMP 98; BMI 18.0
[2022-04-29] MEDS ORDERED: LACTATED RINGERS SOLUTION 1000 ML INFUS.BAG IV ONE ×2 (11:24→13:37)
[2022-04-29] MEDS ORDERED: ONDANSETRON 4 MG/2 ML VIAL IVPUSH ONE (11:24)
[2022-04-29 12:04] LABS: BASO % 0.3 % (0-2.0); EOS % 0.2 % (0-4.5); HEMATOCRIT 40.5 % (32.4-45.2); HEMOGLOBIN 13.4 GM/dL (10.7-15.3); LYMPH % 12.4 % (8-40); MCH 30.1 pg (25.7-33.7); MEAN CELL VOLUME 91.1 fl (80-96); MEAN PLT VOLUME 8.2 fl (7.5-11.1); MONO % 5.2 % (3.8-10.2); NEUT % 81.9 % (42.8-82.8); PLATELET COUNT 363 10^3/uL (134-434); RBC 4.44 M/mm3 (3.60-5.2); RDW 15.1 % (11.6-15.6); WHITE BLOOD COUNT 13.1 K/mm3 (4.0-10.0)
[2022-04-29 12:11] LABS: INR 1.03 (0.83-1.09)
[2022-04-29 12:13] LABS: ACTIVATED PTT 28.7 SECONDS (25.2-36.5)
[2022-04-29 12:19] LABS: VENOUS BASE EXCESS -1.3 mmol/L (-2-2); VENOUS PCO2 47.6 mmHg (38-52); VENOUS PH 7.337 (7.310-7.410)
[2022-04-29 12:23] LABS: BLOOD UREA NITROGEN 32.4 mg/dL (7-18); CALCIUM 10.9 mg/dL (8.5-10.1); MAGNESIUM 1.9 mg/dL (1.8-2.4)
[2022-04-29 12:26] LABS: CREATININE 1.2 mg/dL (0.55-1.3)
[2022-04-29 12:27] LABS: TOT PROT 8.9 g/dl (6.4-8.2)
[2022-04-29 12:28] LABS: BILIRUBIN,TOTAL 0.4 mg/dL (0.2-1)
[2022-04-29 17:20] VITALS: BP 165/75; PULSE 65
== END 2022-04-29 17:20 | disposition home or self-care (01) ==
LOC: JER 09:49
DX: R11.2 Nausea with vomiting, unspecified (principal); E86.0 Dehydration
CPT/HCPCS: 0241U-QW; 36415; 80053; 82803; 82962; 83690; 83735; 84484; 85025; 85610; 85730; 93005; 93010; 99284-25

== ENCOUNTER 2023-06-03 02:42 | Inpatient (IN) | payer OTHER ==
[2023-06-03 02:53] VITALS: BMI 18.8
[2023-06-03] MEDS ORDERED: ACETAMINOPHEN INJECTION 100 ML IVPB ONE (05:01)
[2023-06-03] MEDS: ACETAMINOPHEN 1000 MG/100 ML BAG IVPB ONE (05:19)
[2023-06-03 05:47] LABS: PROTHROMBIN TIME (PATIENT) 11.6 SEC (9.7-13.0)
[2023-06-03 05:49] LABS: ACTIVATED PTT 27.3 SECONDS (25.2-36.5)
[2023-06-03 05:55] LABS: POTASSIUM 4.3 mmol/L (3.5-5.1)
[2023-06-03 05:57] LABS: CALCIUM 9.6 mg/dL (8.5-10.1)
[2023-06-03 05:58] LABS: ALBUMIN 3.2 g/dl (3.4-5.0); BLOOD UREA NITROGEN 16.1 mg/dL (7-18)
[2023-06-03 06:01] LABS: CREATININE 0.9 mg/dL (0.55-1.3)
[2023-06-03 06:03] LABS: BILIRUBIN,TOTAL 0.3 mg/dL (0.2-1); TOT PROT 7.4 g/dl (6.4-8.2)
[2023-06-03 06:11] LABS: BASO % 0.5 % (0-2.0); EOS % 1.4 % (0-4.5); HEMATOCRIT 37.5 % (32.4-45.2); HEMOGLOBIN 12.1 GM/dL (10.7-15.3); LYMPH % 22.9 % (8-40); MCH 29.1 pg (25.7-33.7); MCHC 32.3 g/dl (32.0-36.0); MEAN CELL VOLUME 90.2 fl (80-96); MEAN PLT VOLUME 7.2 fl (7.5-11.1); MONO % 8.9 % (3.8-10.2); NEUT % 66.3 % (42.8-82.8); PLATELET COUNT 201 10^3/uL (134-434); RBC 4.15 M/mm3 (3.60-5.2); RDW 14.5 % (11.6-15.6); WHITE BLOOD COUNT 11.3 K/mm3 (4.0-10.0)
[2023-06-03] MEDS: morphine CARPU-JECT 4 MG/1 ML DISP.SYRIN IVPUSH ONE (08:21)
[2023-06-03] MEDS ORDERED: morphine SULFATE 4 MG/ML VIAL IVPUSH PRN (09:57)
[2023-06-03] MEDS ORDERED: ACETAMINOPHEN 1000 MG/100 ML BAG IVPB PRN (09:58)
[2023-06-03] MEDS: SODIUM CHLORIDE 0.9% 500 ML INFUS.BAG IV ONE (11:38)
[2023-06-03] MEDS: INSULIN ASPART SLIDING SCALE (NOVOLOG) 1 VIAL SQ SCH ×2 (11:48→17:37)
[2023-06-03] MEDS ORDERED: PROPOFOL 20 ML ONE (12:39)
[2023-06-03] MEDS ORDERED: ceFAZolin SODIUM 1 GM VIAL ONE (13:00)
[2023-06-03] MEDS: ceFAZolin SODIUM 1 GM VIAL IVPB ONE (13:03)
[2023-06-03] MEDS ORDERED: DEXAMETHASONE SOD PHOSPHATE 4 MG/1 ML VIAL ONE (13:07)
[2023-06-03] MEDS ORDERED: ONDANSETRON 4 MG/2 ML VIAL ONE (13:07)
[2023-06-03] MEDS ORDERED: LACTATED RINGERS SOLUTION 1,000 ML IV SCH ×2 (13:45)
[2023-06-03] MEDS: ONDANSETRON 4 MG/2 ML VIAL IVPUSH ONE (14:30)
[2023-06-03] MEDS: ONDANSETRON 4 MG/2 ML VIAL ONE (14:32)
[2023-06-03] MEDS ORDERED: PROMETHAZINE HCL 25 MG/1 ML VIAL ONE (14:49)
[2023-06-03] MEDS: PROMETHAZINE HCL 25 MG/1 ML VIAL IVPB ONE (14:55)
[2023-06-03] MEDS: LACTATED RINGERS SOLUTION 1,000 ML IV SCH (15:08)
[2023-06-03 18:11] VITALS: RESP 18
[2023-06-03] MEDS ORDERED: CEFAZOLIN 2 GM in DEXTROSE 5%-WATER 100 ML IVPB SCH (21:00)
[2023-06-03] MEDS: CEFAZOLIN SODIUM 2 GM in DEXTROSE 5%-WATER 100 ML IVPB SCH (21:31)
[2023-06-03] MEDS: ROSUVASTATIN CA 5 MG TABLET PO SCH (21:40)
[2023-06-04] MEDS: ACETAMINOPHEN 1000 MG/100 ML BAG IVPB PRN (09:13)
[2023-06-04] MEDS: metoPROLOL SUCCINATE 25 MG TAB.SR.24H (FP) PO SCH (09:13)
[2023-06-04] MEDS: ASPIRIN 81 MG CHEWABLE TABLETS PO SCH (09:13)
[2023-06-04] MEDS: LOSARTAN POTASSIUM 50 MG TABLET PO SCH (09:13)
[2023-06-04] MEDS: ENOXAPARIN NA (PORCINE) 40 MG/0.4 ML DISP.SYRIN SQ SCH (09:13)
[2023-06-04] MEDS ORDERED: ENOXAPARIN NA (PORCINE) 40 MG/0.4 ML DISP.SYRIN SQ SCH (10:00)
[2023-06-04 10:11] LABS: BASO % 0.3 % (0-2.0); EOS % 0.2 % (0-4.5); HEMATOCRIT 31.2 % (32.4-45.2); HEMOGLOBIN 10.9 GM/dL (10.7-15.3); LYMPH % 22.5 % (8-40); MCHC 34.9 g/dl (32.0-36.0); MEAN PLT VOLUME 7.5 fl (7.5-11.1); MONO % 9.6 % (3.8-10.2); NEUT % 67.4 % (42.8-82.8); PLATELET COUNT 161 10^3/uL (134-434); RBC 3.51 M/mm3 (3.60-5.2); RDW 14.8 % (11.6-15.6); WHITE BLOOD COUNT 10.4 K/mm3 (4.0-10.0)
[2023-06-04 10:13] LABS: INR 1.1 (0.83-1.09); PROTHROMBIN TIME (PATIENT) 12.7 SEC (9.7-13.0)
[2023-06-04 10:15] LABS: ACTIVATED PTT 26.4 SECONDS (25.2-36.5)
[2023-06-04 10:32] LABS: POTASSIUM 4.1 mmol/L (3.5-5.1)
[2023-06-04 10:35] LABS: ALBUMIN 2.9 g/dl (3.4-5.0); BLOOD UREA NITROGEN 12.7 mg/dL (7-18); CALCIUM 8.9 mg/dL (8.5-10.1); MAGNESIUM 1.6 mg/dL (1.8-2.4)
[2023-06-04 10:38] LABS: CREATININE 0.9 mg/dL (0.55-1.3); PHOSPHOROUS 2.6 mg/dL (2.5-4.9)
[2023-06-04 10:40] LABS: BILIRUBIN,TOTAL 0.4 mg/dL (0.2-1); TOT PROT 6.9 g/dl (6.4-8.2)
[2023-06-05 05:30] VITALS: TEMP 98.2
[2023-06-05 09:30] LABS: HEMATOCRIT 25.1 % (32.4-45.2); HEMOGLOBIN 8.5 GM/dL (10.7-15.3); MCHC 33.8 g/dl (32.0-36.0); MEAN CELL VOLUME 88.7 fl (80-96); MEAN PLT VOLUME 7.1 fl (7.5-11.1); PLATELET COUNT 142 10^3/uL (134-434); RBC 2.83 M/mm3 (3.60-5.2); RDW 14.4 % (11.6-15.6); WHITE BLOOD COUNT 8.8 K/mm3 (4.0-10.0)
[2023-06-05 14:46] VITALS: BP 126/64; PULSE 114
== END 2023-06-05 15:05 | disposition home health service (06) | DRG 482 ==
LOC: JER 02:42 → JERBED 08:28 → J6S 16:47
PROVIDERS: ADMIT Internal Medicine; ATTEND Internal Medicine
PROC: 0QS604Z Reposition Right Upper Femur with Internal Fixation Device, Open Approach (ICD-10-PCS; principal; 2023-06-03 13:00)
DX: S72.144A Nondisplaced intertrochanteric fracture of right femur, initial encounter for closed fracture (principal); I10 Essential (primary) hypertension; E78.5 Hyperlipidemia, unspecified; E11.9 Type 2 diabetes mellitus without complications; Z85.41 Personal history of malignant neoplasm of cervix uteri; W19.XXXA Unspecified fall, initial encounter; Y93.9 Activity, unspecified; Y92.89 Other specified places as the place of occurrence of the external cause; Y99.9 Unspecified external cause status
CPT/HCPCS: 36415; 70450-TC; 71045-TC-FY; 72125-TC; 72131-TC; 72170-TC-FY; 72192-TC; 73521-TC-FY; 73552-TC-RT-FY; 73700-TC-RT; 76000-TC-FY; 80048; 80053; 82962; 83735; 84100; 84484; 85025; 85027; 85610; 85730; 86850; 86900; 86901; 87635; 93005; 93010; 94760; 97116-GP; 97161-GP; 99285-25; C1713; J0131

== ENCOUNTER 2023-07-30 12:04 | Observation (INO) | payer OTHER ==
[2023-07-30] MEDS ORDERED: ACETAMINOPHEN INJECTION 100 ML IVPB ONE (12:55)
[2023-07-30] MEDS: ACETAMINOPHEN 1000 MG/100 ML BAG IVPB ONE (14:00)
[2023-07-30 14:17] LABS: BASO % 0.5 % (0-2.0); EOS % 2.5 % (0-4.5); HEMATOCRIT 37.2 % (32.4-45.2); HEMOGLOBIN 12.5 GM/dL (10.7-15.3); LYMPH % 32.3 % (8-40); MCH 30.7 pg (25.7-33.7); MCHC 33.5 g/dl (32.0-36.0); MEAN CELL VOLUME 91.6 fl (80-96); MONO % 13.3 % (3.8-10.2); NEUT % 51.4 % (42.8-82.8); PLATELET COUNT 209 10^3/uL (134-434); RBC 4.06 M/mm3 (3.60-5.2); RDW 16.3 % (11.6-15.6); WHITE BLOOD COUNT 8.6 K/mm3 (4.0-10.0)
[2023-07-30] MEDS: SODIUM CHLORIDE 0.9% 500 ML INFUS.BAG IV ONE (14:19)
[2023-07-30 14:20] LABS: INR 0.95 (0.83-1.09); PROTHROMBIN TIME (PATIENT) 10.8 SEC (9.7-13.0)
[2023-07-30 14:23] LABS: ACTIVATED PTT 30.1 SECONDS (25.2-36.5)
[2023-07-30 14:32] LABS: POTASSIUM 4.1 mmol/L (3.5-5.1)
[2023-07-30 14:33] LABS: ALBUMIN 3.1 g/dl (3.4-5.0); CALCIUM 9.5 mg/dL (8.5-10.1); MAGNESIUM 1.6 mg/dL (1.8-2.4)
[2023-07-30 14:35] LABS: BLOOD UREA NITROGEN 18.8 mg/dL (7-18)
[2023-07-30 14:37] LABS: CREATININE 1.1 mg/dL (0.55-1.3)
[2023-07-30 14:39] LABS: BILIRUBIN,TOTAL 0.3 mg/dL (0.2-1); TOT PROT 7.7 g/dl (6.4-8.2)
[2023-07-30] MEDS ORDERED: MAGNESIUM SULFATE IN WATER 2 GM/50 ML IVPB IVPB ONE (15:18)
[2023-07-30] MEDS: MAGNESIUM SULFATE IN WATER 2 GM/50 ML IVPB IVPB ONE (15:22)
[2023-07-30 15:27] LABS: EPI CELLS 1 /uL (0-25.1); HYALINE CASTS 0 /uL (0-3.1); URINE APPEARANCE TURBID; URINE BACTERIA >9,000 /uL (0-1359); URINE BILIRUBIN NEGATIVE (NEGATIVE); URINE COLOR YELLOW; URINE GLUCOSE (UA) 3+ (NEGATIVE); URINE KETONE NEGATIVE (NEGATIVE); URINE LEUK ESTERASE 2+ (NEGATIVE); URINE NITRITE NEGATIVE (NEGATIVE); URINE PROTEIN TRACE (NEGATIVE); URINE RBC 103 /uL (0-23.9); URINE UROBILINOGEN 0.2 mg/dL (0.2-1.0); URINE WBC 3415 /uL (0-25.8)
[2023-07-30] MEDS ORDERED: CEFTRIAXONE 1 GM/50 ML BAG ONE (16:05)
[2023-07-30] MEDS: LACTATED RINGERS SOLUTION 1,000 ML/1,000 ML INFUS.BAG IV SCH (16:15)
[2023-07-30] MEDS: DEXTROSE 5%-0.45% SALINE 1,000 ML IV SCH (21:32)
[2023-07-31 07:22] LABS: BASO % 0.7 % (0-2.0); HEMATOCRIT 36.8 % (32.4-45.2); LYMPH % 30.2 % (8-40); MCH 30.3 pg (25.7-33.7); MCHC 32.5 g/dl (32.0-36.0); MEAN PLT VOLUME 7.2 fl (7.5-11.1); MONO % 10.7 % (3.8-10.2); NEUT % 56.4 % (42.8-82.8); PLATELET COUNT 207 10^3/uL (134-434); RBC 3.95 M/mm3 (3.60-5.2); RDW 16.2 % (11.6-15.6); WHITE BLOOD COUNT 8.1 K/mm3 (4.0-10.0)
[2023-07-31 07:35] LABS: POTASSIUM 4.1 mmol/L (3.5-5.1)
[2023-07-31 07:41] LABS: CALCIUM 9.6 mg/dL (8.5-10.1)
[2023-07-31 07:43] LABS: BLOOD UREA NITROGEN 12.2 mg/dL (7-18)
[2023-07-31 07:46] LABS: CREATININE 0.9 mg/dL (0.55-1.3)
[2023-07-31] MEDS: CITALOPRAM HYDROBROMIDE 20 MG TABLET PO SCH (09:57)
[2023-07-31] MEDS: LOSARTAN POTASSIUM 25 MG TABLET PO SCH (09:57)
[2023-07-31] MEDS: metoPROLOL SUCCINATE 25 MG TAB.SR.24H (FP) PO SCH (09:57)
[2023-07-31] MEDS: PANTOPRAZOLE 40 MG TABLET PO SCH (09:57)
[2023-07-31] MEDS ORDERED: PATIENT'S OWN MEDICATION (NON-FORMULARY) (Mirabegron [Myrbetriq] 25 MG Tab.Er.24h) PO SCH (10:00)
[2023-07-31 15:28] VITALS: BMI 18.6
[2023-07-31 15:35] VITALS: BP 110/99; PULSE 82; RESP 18; TEMP 97.5
[2023-07-31] MEDS ORDERED: CEFTRIAXONE 1 GM in DEXTROSE 5%-WATER - 50 ML IVPB SCH (16:00)
[2023-07-31] MEDS ORDERED: ROSUVASTATIN CA 5 MG TABLET PO SCH (22:00)
== END 2023-07-31 15:56 | disposition home or self-care (01) ==
LOC: JER 12:04 → JERBED 15:30 → J4W 20:48
PROVIDERS: ADMIT Internal Medicine; ATTEND Family Medicine
PROC: 3E03329 Introduction of Other Anti-infective into Peripheral Vein, Percutaneous Approach (ICD-10-PCS; principal; 2023-07-30)
PROC: 3E0337Z Introduction of Electrolytic and Water Balance Substance into Peripheral Vein, Percutaneous Approach (ICD-10-PCS; 2023-07-30)
PROC: 3E033GC Introduction of Other Therapeutic Substance into Peripheral Vein, Percutaneous Approach (ICD-10-PCS; 2023-07-30)
DX: N39.0 Urinary tract infection, site not specified (principal); F03.90 Unspecified dementia, unspecified severity, without behavioral disturbance, psychotic disturbance, mood disturbance, and anxiety; E78.5 Hyperlipidemia, unspecified; I10 Essential (primary) hypertension; R29.6 Repeated falls; R01.1 Cardiac murmur, unspecified; R55 Syncope and collapse; E11.9 Type 2 diabetes mellitus without complications; M25.551 Pain in right hip; Z85.41 Personal history of malignant neoplasm of cervix uteri
CPT/HCPCS: 0241U-QW; 36415; 70450-TC; 71045-TC-FY; 72125-TC; 72170-TC-FY; 72192-TC; 73521-TC-FY; 80048; 80053; 81003; 82550; 83735; 84443; 84484; 85025; 85610; 85730; 87086; 93005; 93010; 96361; 96367; 96374; 96376; 97116-GP; 97162-GP; 99285-25; G0378; J0131

== ENCOUNTER 2023-12-09 10:06 | Inpatient (IN) | payer OTHER ==
[2023-12-09 12:24] LABS: URINE APPEARANCE Turbid; URINE BILIRUBIN 2+ (NEGATIVE); URINE COLOR Other; URINE GLUCOSE (UA) 3+ (NEGATIVE); URINE KETONE 1+ (NEGATIVE); URINE LEUK ESTERASE 3+ (NEGATIVE); URINE NITRITE Positive (NEGATIVE); URINE PROTEIN 3+ (NEGATIVE)
[2023-12-09 12:46] LABS: EPI CELLS 17 /uL (0-25.1); URINE RBC 5789 /uL (0-23.9); URINE WBC 12302 /uL (0-25.8)
[2023-12-09 12:47] LABS: HYALINE CASTS 1065 /uL (0-3.1); URINE BACTERIA 529 /uL (0-1359)
[2023-12-09] MEDS: SODIUM CHLORIDE 500 ML IV STA ×2 (13:18→16:16)
[2023-12-09 13:23] LABS: BASO % 0.2 % (0-2.0); EOS % 0.2 % (0-4.5); HEMATOCRIT 33.4 % (32.4-45.2); HEMOGLOBIN 10.7 GM/dL (10.7-15.3); LYMPH % 25.4 % (8-40); MCH 27.6 pg (25.7-33.7); MEAN CELL VOLUME 86.1 fl (80-96); MEAN PLT VOLUME 6.7 fl (7.5-11.1); NEUT % 60.2 % (42.8-82.8); PLATELET COUNT 235 10^3/uL (134-434); RBC 3.88 M/mm3 (3.60-5.2); RDW 20.5 % (11.6-15.6); WHITE BLOOD COUNT 12.6 K/mm3 (4.0-10.0)
[2023-12-09 14:15] LABS: POTASSIUM 5.5 mmol/L (3.5-5.1)
[2023-12-09 14:17] LABS: BLOOD UREA NITROGEN 23.7 mg/dL (7-18)
[2023-12-09 14:21] LABS: CREATININE 1.2 mg/dL (0.55-1.3)
[2023-12-09 14:22] LABS: BILIRUBIN,TOTAL 0.4 mg/dL (0.2-1); TOT PROT 7.3 g/dl (6.4-8.2)
[2023-12-09 14:34] LABS: ANISOCYTOSIS 1+; MACROCYTOSIS 0
[2023-12-09] MEDS: CEFTRIAXONE 1,000 MG in DEXTROSE 5%-WATER - 50 ML IVPB ONE (14:54)
[2023-12-09] MEDS ORDERED: CEFTRIAXONE 1 GM/50 ML BAG ONE (14:55)
[2023-12-09] MEDS: SODIUM CHLORIDE 0.45% 1,000 ML IV SCH (19:09)
[2023-12-09] MEDS ORDERED: ROSUVASTATIN CA 5 MG TABLET ONE (22:18)
[2023-12-09] MEDS ORDERED: HEPARIN NA (PORCINE) 5,000 UNITS/ML 1ML VIAL ONE (22:18)
[2023-12-09] MEDS: INSULIN (NOVOLOG) ASPART 100 UNITS/ML 10ML VIAL SQ SCH (22:53)
[2023-12-09] MEDS: HEPARIN NA (PORCINE) 5,000 UNITS/ML 1ML VIAL SQ SCH (22:53)
[2023-12-09] MEDS: ROSUVASTATIN CA 5 MG TABLET PO SCH (22:53)
[2023-12-10] MEDS: ACETAMINOPHEN 1000 MG/100 ML BAG IVPB PRN (03:38)
[2023-12-10] MEDS ORDERED: PANTOPRAZOLE 40 MG TABLET PO ONE (07:20)
[2023-12-10] MEDS ORDERED: sitaGLIPtin PHOSPHATE 50 MG TABLET ONE (07:20)
[2023-12-10 07:24] LABS: BASO % 0.3 % (0-2.0); EOS % 0.1 % (0-4.5); HEMATOCRIT 30.7 % (32.4-45.2); HEMOGLOBIN 9.8 GM/dL (10.7-15.3); LYMPH % 19.9 % (8-40); MCH 27.9 pg (25.7-33.7); MEAN PLT VOLUME 7.4 fl (7.5-11.1); MONO % 13.8 % (3.8-10.2); NEUT % 65.9 % (42.8-82.8); PLATELET COUNT 225 10^3/uL (134-434); RBC 3.53 M/mm3 (3.60-5.2); RDW 20.1 % (11.6-15.6); WHITE BLOOD COUNT 12.6 K/mm3 (4.0-10.0)
[2023-12-10] MEDS: PANTOPRAZOLE 40 MG TABLET PO SCH (07:29)
[2023-12-10] MEDS: sitaGLIPtin PHOSPHATE 50 MG TABLET PO SCH (07:29)
[2023-12-10 07:39] LABS: POTASSIUM 4.5 mmol/L (3.5-5.1)
[2023-12-10 07:44] LABS: ALBUMIN 2.8 g/dl (3.4-5.0); BLOOD UREA NITROGEN 20.4 mg/dL (7-18); CALCIUM 9.5 mg/dL (8.5-10.1)
[2023-12-10 07:48] LABS: CREATININE 1.1 mg/dL (0.55-1.3)
[2023-12-10 07:50] LABS: BILIRUBIN,TOTAL 0.5 mg/dL (0.2-1); TOT PROT 6.9 g/dl (6.4-8.2)
[2023-12-10] MEDS: LOSARTAN POTASSIUM 25 MG TABLET PO SCH (09:44)
[2023-12-10] MEDS: metoPROLOL SUCCINATE 25 MG TAB.SR.24H (FP) PO SCH (09:44)
[2023-12-10] MEDS ORDERED: CITALOPRAM HYDROBROMIDE 10 MG TABLET ONE (09:45)
[2023-12-10] MEDS ORDERED: CEFTRIAXONE 1 GM/50 ML BAG ONE (09:46)
[2023-12-10] MEDS ORDERED: HEPARIN NA (PORCINE) 5,000 UNITS/ML 1ML VIAL ONE (09:46)
[2023-12-10] MEDS: CITALOPRAM HYDROBROMIDE 20 MG TABLET PO SCH (09:53)
[2023-12-10] MEDS: CEFTRIAXONE 1 GM in DEXTROSE 5%-WATER - 50 ML IVPB SCH (09:53)
[2023-12-10] MEDS ORDERED: BROMOCRIPTINE MESYLATE 0.8 MG PO SCH (10:00)
[2023-12-11] MEDS: ACETAMINOPHEN 1000 MG/100 ML BAG IVPB PRN (02:06)
[2023-12-11] MEDS ORDERED: INSULIN ASPART SLIDING SCALE (NOVOLOG) 1 VIAL SQ ONE ×2 (10:52→21:43)
[2023-12-11 12:07] LABS: BASO % 0.1 % (0-2.0); HEMATOCRIT 32.8 % (32.4-45.2); HEMOGLOBIN 10.6 GM/dL (10.7-15.3); LYMPH % 17.2 % (8-40); MCH 27.9 pg (25.7-33.7); MCHC 32.5 g/dl (32.0-36.0); MEAN PLT VOLUME 7.3 fl (7.5-11.1); MONO % 11.4 % (3.8-10.2); NEUT % 71.3 % (42.8-82.8); PLATELET COUNT 249 10^3/uL (134-434); RBC 3.81 M/mm3 (3.60-5.2); RDW 20.1 % (11.6-15.6); WHITE BLOOD COUNT 12.8 K/mm3 (4.0-10.0)
[2023-12-11 12:46] LABS: POTASSIUM 4.5 mmol/L (3.5-5.1)
[2023-12-11 12:48] LABS: ALBUMIN 2.8 g/dl (3.4-5.0); CALCIUM 9.6 mg/dL (8.5-10.1)
[2023-12-11 12:52] LABS: CREATININE 1.3 mg/dL (0.55-1.3)
[2023-12-11 12:53] LABS: BILIRUBIN,TOTAL 0.4 mg/dL (0.2-1); TOT PROT 7.3 g/dl (6.4-8.2)
[2023-12-11] MEDS: ERTAPENEM SODIUM 1 GM in SODIUM CHLORIDE 50 ML IVPB SCH (13:41)
[2023-12-11] MEDS: LACTATED RINGERS SOLUTION 1,000 ML/1,000 ML INFUS.BAG IV SCH (13:41)
[2023-12-11] MEDS: SODIUM CHLORIDE 1,000 ML IV SCH (17:22)
[2023-12-13 07:51] VITALS: RESP 18
[2023-12-14 10:51] LABS: BASO % 0.4 % (0-2.0); EOS % 1.6 % (0-4.5); HEMATOCRIT 30.2 % (32.4-45.2); HEMOGLOBIN 9.8 GM/dL (10.7-15.3); LYMPH % 32.9 % (8-40); MCHC 32.6 g/dl (32.0-36.0); MEAN CELL VOLUME 85.9 fl (80-96); MEAN PLT VOLUME 7.5 fl (7.5-11.1); MONO % 12.2 % (3.8-10.2); NEUT % 52.9 % (42.8-82.8); PLATELET COUNT 297 10^3/uL (134-434); RBC 3.51 M/mm3 (3.60-5.2); WHITE BLOOD COUNT 7.3 K/mm3 (4.0-10.0)
[2023-12-14 11:08] LABS: POTASSIUM 4.4 mmol/L (3.5-5.1)
[2023-12-14 11:11] LABS: CALCIUM 9.8 mg/dL (8.5-10.1)
[2023-12-14 11:15] LABS: CREATININE 1.1 mg/dL (0.55-1.3)
[2023-12-15 15:04] VITALS: BMI 20.9
[2023-12-15] MEDS: ASCORBIC ACID 250 MG TABLET (FP) PO SCH (16:55)
[2023-12-15] MEDS: MULTIVITAMINS (DAILY MVI) TABLET (FP) PO SCH (16:55)
[2023-12-15] MEDS: AMINO ACIDS/PROTEIN HYDROLYS 30 ML LIQUID.PKT PO SCH (16:55)
[2023-12-15 20:19] VITALS: BP 101/54; PULSE 71; TEMP 97.7
== END 2023-12-16 00:55 | disposition home health service (06) | DRG 690 ==
LOC: JER 10:06 → OBSVTOIN 17:59 → JERBED 17:59 → J8W 12-10 15:15 → J6S 12-11 20:21
PROVIDERS: ADMIT Family Medicine; ATTEND Family Medicine
DX: N30.01 Acute cystitis with hematuria (principal); E87.1 Hypo-osmolality and hyponatremia; F03.90 Unspecified dementia, unspecified severity, without behavioral disturbance, psychotic disturbance, mood disturbance, and anxiety; E11.9 Type 2 diabetes mellitus without complications; E78.5 Hyperlipidemia, unspecified; I10 Essential (primary) hypertension
CPT/HCPCS: 0241U-QW; 36415; 71045-TC-FY; 74176-TC; 76857; 80048; 80053; 81003; 82533; 82962; 84443; 85025; 87040; 87086; 87186; 93005; 93010; 99285-25; J0131; J1644

== ENCOUNTER 2023-12-21 08:21 | Inpatient (IN) | payer OTHER ==
[2023-12-21 09:29] LABS: BASO % 0.3 % (0-2.0); EOS % 0.6 % (0-4.5); HEMATOCRIT 32.1 % (32.4-45.2); HEMOGLOBIN 10.5 GM/dL (10.7-15.3); LYMPH % 15.4 % (8-40); MCH 28.5 pg (25.7-33.7); MCHC 32.6 g/dl (32.0-36.0); MEAN CELL VOLUME 87.5 fl (80-96); MEAN PLT VOLUME 6.8 fl (7.5-11.1); MONO % 8.2 % (3.8-10.2); NEUT % 75.5 % (42.8-82.8); PLATELET COUNT 368 10^3/uL (134-434); RBC 3.67 M/mm3 (3.60-5.2); RDW 20.9 % (11.6-15.6); WHITE BLOOD COUNT 8.2 K/mm3 (4.0-10.0)
[2023-12-21 09:37] LABS: INR 0.96 (0.83-1.09)
[2023-12-21 09:40] LABS: ACTIVATED PTT 26.1 SECONDS (25.2-36.5)
[2023-12-21 09:46] LABS: POTASSIUM 5.5 mmol/L (3.5-5.1)
[2023-12-21 09:49] LABS: ALBUMIN 2.9 g/dl (3.4-5.0); CALCIUM 9.5 mg/dL (8.5-10.1)
[2023-12-21 09:52] LABS: CREATININE 6.5 mg/dL (0.55-1.3)
[2023-12-21 09:55] LABS: BILIRUBIN,TOTAL 0.4 mg/dL (0.2-1); TOT PROT 7.4 g/dl (6.4-8.2)
[2023-12-21 10:00] LABS: BLOOD UREA NITROGEN 47.2 mg/dL (7-18)
[2023-12-21 10:27] LABS: ANISOCYTOSIS 2+; MACROCYTOSIS 0
[2023-12-21 11:09] LABS: EPI CELLS 4 /uL (0-25.1); HYALINE CASTS 1 /uL (0-3.1); PH,URINE 5.5 (5.0-8.0); URINE APPEARANCE TURBID; URINE BACTERIA 15 /uL (0-1359); URINE BILIRUBIN NEGATIVE (NEGATIVE); URINE COLOR YELLOW; URINE GLUCOSE (UA) 1+ (NEGATIVE); URINE KETONE NEGATIVE (NEGATIVE); URINE LEUK ESTERASE 3+ (NEGATIVE); URINE NITRITE NEGATIVE (NEGATIVE); URINE PROTEIN 3+ (NEGATIVE); URINE UROBILINOGEN 0.2 mg/dL (0.2-1.0); URINE WBC 9839 /uL (0-25.8)
[2023-12-21 11:27] LABS: URINE RBC 166.3 /uL (0-23.9)
[2023-12-21] MEDS: SODIUM CHLORIDE 0.9% 500 ML INFUS.BAG IV ONE (11:27)
[2023-12-21] MEDS ORDERED: CEFTRIAXONE 1 GM/50 ML BAG ONE (13:42)
[2023-12-21] MEDS: CEFTRIAXONE 1 GM in DEXTROSE 5%-WATER - 50 ML IVPB ONE (13:50)
[2023-12-21] MEDS ORDERED: SODIUM ZIRCONIUM CYCLOSILICATE (LOKELMA) 10 GM PACKET ONE (16:03)
[2023-12-21] MEDS: SODIUM CHLORIDE 1,000 ML IV SCH (16:48)
[2023-12-21] MEDS: SODIUM ZIRCONIUM CYCLOSILICATE (LOKELMA) 5 GM PACKET PO SCH (16:48)
[2023-12-21] MEDS: DEXTROSE 50%-WATER 25 GM/50 ML DISP.SYRIN IVPUSH ONE (17:00)
[2023-12-21] MEDS ORDERED: DEXTROSE 50%-WATER 25 GM/50 ML DISP.SYRIN ONE (17:07)
[2023-12-21] MEDS ORDERED: D5-1/2NS+10 MEQ KCL - 10 MEQ/1,000 ML INFUS.BAG IV SCH (17:45)
[2023-12-21 18:00] LABS: EPI CELLS >36 /uL (0-25.1); HYALINE CASTS 8 /uL (0-3.1); PH,URINE 5.5 (5.0-8.0); URINE APPEARANCE TURBID; URINE BACTERIA 9 /uL (0-1359); URINE BILIRUBIN NEGATIVE (NEGATIVE); URINE COLOR YELLOW; URINE GLUCOSE (UA) TRACE (NEGATIVE); URINE KETONE NEGATIVE (NEGATIVE); URINE LEUK ESTERASE 3+ (NEGATIVE); URINE NITRITE NEGATIVE (NEGATIVE); URINE PROTEIN 3+ (NEGATIVE); URINE RBC 11 /uL (0-23.9); URINE UROBILINOGEN 0.2 mg/dL (0.2-1.0); URINE WBC 118 /uL (0-25.8)
[2023-12-21] MEDS: DEXTROSE 5%-NORMAL SALINE 1,000 ML IV SCH (18:14)
[2023-12-22] MEDS ORDERED: DEXTROSE 50%-WATER 25 GM/50 ML DISP.SYRIN ONE (06:04)
[2023-12-22 06:20] LABS: BASO % 0.5 % (0-2.0); EOS % 1.6 % (0-4.5); HEMATOCRIT 29.1 % (32.4-45.2); HEMOGLOBIN 9.4 GM/dL (10.7-15.3); LYMPH % 32.6 % (8-40); MCH 28.5 pg (25.7-33.7); MCHC 32.4 g/dl (32.0-36.0); MEAN PLT VOLUME 7.2 fl (7.5-11.1); MONO % 9.2 % (3.8-10.2); NEUT % 56.1 % (42.8-82.8); PLATELET COUNT 356 10^3/uL (134-434); RDW 20.5 % (11.6-15.6); WHITE BLOOD COUNT 10.7 K/mm3 (4.0-10.0)
[2023-12-22] MEDS: DEXTROSE 5%-NORMAL SALINE 1,000 ML IV SCH (06:25)
[2023-12-22 06:38] LABS: CHLORIDE 114 mmol/L (98-107); POTASSIUM 4.7 mmol/L (3.5-5.1); SODIUM 138 mmol/L (136-145)
[2023-12-22 06:40] LABS: CALCIUM 8.9 mg/dL (8.5-10.1)
[2023-12-22 06:41] LABS: ALBUMIN 2.6 g/dl (3.4-5.0); ANION GAP 5 mmol/L (4-13); BLOOD UREA NITROGEN 45.6 mg/dL (7-18); CO2 20 mmol/L (21-32); MAGNESIUM 1.7 mg/dL (1.8-2.4)
[2023-12-22 06:44] LABS: CHOLESTEROL 100 mg/dL (50-200); CREATININE 5.8 mg/dL (0.55-1.3); SGOT/AST 21 U/L (15-37); SGPT/ALT 16 U/L (13-61)
[2023-12-22 06:45] LABS: BILIRUBIN,TOTAL 0.2 mg/dL (0.2-1); LDL CHOLESTEROL (ONLY SJRH) 40 mg/dL (5-100); TOT PROT 6.6 g/dl (6.4-8.2)
[2023-12-22 06:46] LABS: ALK PHOS 67 U/L (45-117)
[2023-12-22 06:51] LABS: HDL CHOLESTEROL 45 mg/dL (40-60)
[2023-12-22 07:07] LABS: GLUCOSE,RANDOM 23 mg/dL (74-106)
[2023-12-22] MEDS ORDERED: DEXTROSE 50%-WATER - 25 GM/50 ML VIAL IVPUSH PRN (15:24)
[2023-12-22] MEDS: DEXTROSE 5%-0.45% SALINE 1,000 ML IV SCH (16:01)
[2023-12-23 10:08] LABS: BASO % 0.7 % (0-2.0); EOS % 3.7 % (0-4.5); HEMATOCRIT 31.6 % (32.4-45.2); HEMOGLOBIN 10.4 GM/dL (10.7-15.3); LYMPH % 29.2 % (8-40); MCH 28.4 pg (25.7-33.7); MCHC 32.8 g/dl (32.0-36.0); MEAN CELL VOLUME 86.7 fl (80-96); MEAN PLT VOLUME 7.3 fl (7.5-11.1); MONO % 8.1 % (3.8-10.2); NEUT % 58.3 % (42.8-82.8); PLATELET COUNT 371 10^3/uL (134-434); RBC 3.65 M/mm3 (3.60-5.2); RDW 20.7 % (11.6-15.6); WHITE BLOOD COUNT 8.6 K/mm3 (4.0-10.0)
[2023-12-23 10:31] LABS: POTASSIUM 4.5 mmol/L (3.5-5.1)
[2023-12-23 10:33] LABS: ALBUMIN 2.7 g/dl (3.4-5.0); BLOOD UREA NITROGEN 31.4 mg/dL (7-18)
[2023-12-23 10:36] LABS: CREATININE 3.8 mg/dL (0.55-1.3)
[2023-12-23 10:38] LABS: BILIRUBIN,TOTAL 0.3 mg/dL (0.2-1); TOT PROT 6.8 g/dl (6.4-8.2)
[2023-12-23 15:11] VITALS: BMI 23.8
[2023-12-23] MEDS: ERTAPENEM SODIUM 0.5 GM in SODIUM CHLORIDE 50 ML IVPB ONE (19:42)
[2023-12-24] MEDS: SODIUM CHLORIDE 0.45% 1,000 ML IV SCH (10:55)
[2023-12-24] MEDS: metoPROLOL SUCCINATE 25 MG TAB.SR.24H (FP) PO SCH (12:13)
[2023-12-24 13:45] LABS: POTASSIUM 4.2 mmol/L (3.5-5.1)
[2023-12-24 13:48] LABS: ALBUMIN 2.7 g/dl (3.4-5.0); BLOOD UREA NITROGEN 23.2 mg/dL (7-18); CALCIUM 9.1 mg/dL (8.5-10.1)
[2023-12-24 13:50] LABS: CREATININE 2.4 mg/dL (0.55-1.3)
[2023-12-24 13:52] LABS: BILIRUBIN,TOTAL 0.3 mg/dL (0.2-1)
[2023-12-24 13:53] LABS: TOT PROT 6.8 g/dl (6.4-8.2)
[2023-12-24] MEDS: INSULIN ASPART SLIDING SCALE (NOVOLOG) 1 VIAL SQ SCH (16:27)
[2023-12-24] MEDS: HEPARIN NA (PORCINE) 5,000 UNITS/ML 1ML VIAL SQ SCH (21:20)
[2023-12-24] MEDS: ROSUVASTATIN CA 5 MG TABLET PO SCH (21:21)
[2023-12-24 22:09] LABS: ANTIGLOMERULAR BASEMENT MEN.AB <0.2 units (0.0-0.9)
[2023-12-25 08:29] LABS: ALBUMIN 2.6 g/dl (3.4-5.0); BLOOD UREA NITROGEN 24.2 mg/dL (7-18); CALCIUM 9.2 mg/dL (8.5-10.1)
[2023-12-25 08:32] LABS: CREATININE 2.1 mg/dL (0.55-1.3)
[2023-12-25 08:35] LABS: BILIRUBIN,TOTAL 0.8 mg/dL (0.2-1); TOT PROT 6.4 g/dl (6.4-8.2)
[2023-12-25 16:09] LABS: C-ANCA <1:20 titer (Neg:<1:20)
[2023-12-26 11:38] VITALS: RESP 18
[2023-12-26 11:52] VITALS: BP 141/76; PULSE 78; TEMP 98.1
== END 2023-12-26 11:59 | disposition home health service (06) | DRG 639 ==
LOC: JER 08:21 → JERBED 10:44 → J4S 20:45
PROVIDERS: ADMIT Internal Medicine; ATTEND Internal Medicine
DX: E11.649 Type 2 diabetes mellitus with hypoglycemia without coma (principal); N17.9 Acute kidney failure, unspecified; I10 Essential (primary) hypertension; E78.5 Hyperlipidemia, unspecified; F03.90 Unspecified dementia, unspecified severity, without behavioral disturbance, psychotic disturbance, mood disturbance, and anxiety; E86.0 Dehydration; R55 Syncope and collapse; E87.5 Hyperkalemia; R80.9 Proteinuria, unspecified; Z85.41 Personal history of malignant neoplasm of cervix uteri
CPT/HCPCS: 36415; 76775-TC; 76856-TC; 80053; 80061; 81003; 82436; 82570; 82962; 83036; 83516; 83520; 83605; 83735; 84133; 84300; 84443; 85025; 85610; 85730; 86038; 86160; 86225; 86256; 87086; 93005; 93010; 93306-TC; 99285-25; J1644

== ENCOUNTER 2024-03-07 16:30 | Emergency (ER) | payer OTHER ==
[2024-03-07 16:51] VITALS: BP 106/57; PULSE 83; RESP 18; TEMP 98.4; BMI 17.6
[2024-03-07 18:30] LABS: EOS % 2.8 % (0-4.5); HEMOGLOBIN 10.4 GM/dL (10.7-15.3); LYMPH % 46.9 % (8-40); MCH 29.7 pg (25.7-33.7); MCHC 32.4 g/dl (32.0-36.0); MEAN CELL VOLUME 91.7 fl (80-96); MEAN PLT VOLUME 7.2 fl (7.5-11.1); MONO % 12.4 % (3.8-10.2); NEUT % 36.9 % (42.8-82.8); PLATELET COUNT 291 10^3/uL (134-434); RBC 3.49 M/mm3 (3.60-5.2); RDW 16.4 % (11.6-15.6); WHITE BLOOD COUNT 7.3 K/mm3 (4.0-10.0)
[2024-03-07 18:31] LABS: EPI CELLS 13 /uL (0-25.1); HYALINE CASTS 2 /uL (0-3.1); PH,URINE 5.5 (5.0-8.0); URINE APPEARANCE TURBID; URINE BACTERIA 38 /uL (0-1359); URINE BILIRUBIN NEGATIVE (NEGATIVE); URINE COLOR ORANGE; URINE GLUCOSE (UA) 3+ (NEGATIVE); URINE KETONE NEGATIVE (NEGATIVE); URINE LEUK ESTERASE 3+ (NEGATIVE); URINE NITRITE NEGATIVE (NEGATIVE); URINE PROTEIN 3+ (NEGATIVE); URINE RBC 5150 /uL (0-23.9); URINE UROBILINOGEN 0.2 mg/dL (0.2-1.0); URINE WBC 19702 /uL (0-25.8)
[2024-03-07 18:36] LABS: INR 1.03 (0.83-1.09); PROTHROMBIN TIME (PATIENT) 11.8 SEC (9.7-13.0)
[2024-03-07 18:39] LABS: ACTIVATED PTT 17.8 SECONDS (25.2-36.5)
[2024-03-07 19:13] LABS: POTASSIUM 4.3 mmol/L (3.5-5.1)
[2024-03-07 19:16] LABS: ALBUMIN 2.7 g/dl (3.4-5.0); BLOOD UREA NITROGEN 17.3 mg/dL (7-18); CALCIUM 9.9 mg/dL (8.5-10.1); MAGNESIUM 1.8 mg/dL (1.8-2.4)
[2024-03-07 19:19] LABS: CREATININE 1.2 mg/dL (0.55-1.3); PHOSPHOROUS 2.7 mg/dL (2.5-4.9)
[2024-03-07 19:21] LABS: BILIRUBIN,TOTAL 0.5 mg/dL (0.2-1); TOT PROT 7.7 g/dl (6.4-8.2)
[2024-03-07] MEDS: CEFPODOXIME PROXETIL 100 MG TABLET PO ONE (20:42)
== END 2024-03-07 20:45 | disposition home or self-care (01) ==
LOC: JER 16:30
DX: N39.0 Urinary tract infection, site not specified (principal); R53.1 Weakness; R63.0 Anorexia; Z20.822 Contact with and (suspected) exposure to COVID-19
CPT/HCPCS: 0241U-QW; 36415; 70450-TC; 80053; 81003; 83735; 84100; 85025; 85610; 85730; 87086; 93005; 93010; 99285-25

== ENCOUNTER 2024-04-10 16:42 | Emergency (ER) | payer OTHER ==
[2024-04-10 17:20] VITALS: BP 106/57; PULSE 61; RESP 18; TEMP 98.5; BMI 18.1
[2024-04-10] MEDS: SODIUM CHLORIDE 0.9% 500 ML INFUS.BAG IV ONE (18:45)
[2024-04-10 18:47] LABS: HEMATOCRIT 31.1 % (32.4-45.2); HEMOGLOBIN 10.1 GM/dL (10.7-15.3); MCH 29.6 pg (25.7-33.7); MCHC 32.6 g/dl (32.0-36.0); MEAN PLT VOLUME 6.4 fl (7.5-11.1); PLATELET COUNT 177 10^3/uL (134-434); RBC 3.41 M/mm3 (3.60-5.2); RDW 16.5 % (11.6-15.6); WHITE BLOOD COUNT 6.8 K/mm3 (4.0-10.0)
[2024-04-10 18:54] LABS: INR 1.02 (0.83-1.09); PROTHROMBIN TIME (PATIENT) 11.7 SEC (9.7-13.0)
[2024-04-10 18:57] LABS: ACTIVATED PTT 28.6 SECONDS (25.2-36.5)
[2024-04-10 19:04] LABS: POTASSIUM 5.2 mmol/L (3.5-5.1)
[2024-04-10 19:06] LABS: CALCIUM 9.5 mg/dL (8.5-10.1)
[2024-04-10 19:07] LABS: ALBUMIN 2.6 g/dl (3.4-5.0)
[2024-04-10 19:10] LABS: CREATININE 1.1 mg/dL (0.55-1.3)
[2024-04-10 19:12] LABS: BILIRUBIN,TOTAL 0.2 mg/dL (0.2-1); TOT PROT 6.9 g/dl (6.4-8.2)
[2024-04-10 19:30] LABS: ANISOCYTOSIS 2+; MACROCYTOSIS 0; OVALOCYTE 1+
[2024-04-10 20:18] LABS: HIV INTERPRETATION NEGATIVE (NEGATIVE)
[2024-04-10 21:10] LABS: HEMATOCRIT 28.6 % (32.4-45.2); HEMOGLOBIN 9.3 GM/dL (10.7-15.3); MCH 29.5 pg (25.7-33.7); MCHC 32.5 g/dl (32.0-36.0); MEAN CELL VOLUME 90.8 fl (80-96); MEAN PLT VOLUME 6.4 fl (7.5-11.1); PLATELET COUNT 176 10^3/uL (134-434); RBC 3.15 M/mm3 (3.60-5.2); RDW 16.8 % (11.6-15.6); WHITE BLOOD COUNT 7.9 K/mm3 (4.0-10.0)
[2024-04-10 21:17] LABS: EPI CELLS 24 /uL (0-25.1); HYALINE CASTS 4 /uL (0-3.1); PH,URINE 5.5 (5.0-8.0); URINE APPEARANCE TURBID; URINE BACTERIA 26 /uL (0-1359); URINE BILIRUBIN NEGATIVE (NEGATIVE); URINE COLOR ORANGE; URINE GLUCOSE (UA) 3+ (NEGATIVE); URINE KETONE NEGATIVE (NEGATIVE); URINE LEUK ESTERASE 3+ (NEGATIVE); URINE NITRITE NEGATIVE (NEGATIVE); URINE PROTEIN 2+ (NEGATIVE); URINE RBC 6306 /uL (0-23.9); URINE UROBILINOGEN 0.2 mg/dL (0.2-1.0); URINE WBC 22941 /uL (0-25.8)
== END 2024-04-10 22:54 | disposition home or self-care (01) ==
LOC: JER 16:42
DX: N39.0 Urinary tract infection, site not specified (principal)
CPT/HCPCS: 36415; 80053; 81003; 82272; 85025; 85027; 85610; 85730; 86803; 86850; 86900; 86901; 87086; 87389; 93005; 93010; 99284-25

== ENCOUNTER 2024-06-06 21:32 | Inpatient (IN) | payer OTHER ==
[2024-06-06 22:40] LABS: BASO % 0.6 % (0-2.0); EOS % 2.9 % (0-4.5); HEMATOCRIT 32.9 % (32.4-45.2); HEMOGLOBIN 10.6 GM/dL (10.7-15.3); LYMPH % 31.5 % (8-40); MCH 29.6 pg (25.7-33.7); MCHC 32.2 g/dl (32.0-36.0); MEAN PLT VOLUME 6.9 fl (7.5-11.1); MONO % 11.3 % (3.8-10.2); NEUT % 53.7 % (42.8-82.8); PLATELET COUNT 218 10^3/uL (134-434); RBC 3.57 M/mm3 (3.60-5.2); RDW 16.6 % (11.6-15.6); WHITE BLOOD COUNT 7.7 K/mm3 (4.0-10.0)
[2024-06-06 23:04] LABS: POTASSIUM 4.4 mmol/L (3.5-5.1)
[2024-06-06 23:06] LABS: ALBUMIN 2.7 g/dl (3.4-5.0); BLOOD UREA NITROGEN 15.2 mg/dL (7-18); CALCIUM 9.5 mg/dL (8.5-10.1); MAGNESIUM 1.5 mg/dL (1.8-2.4)
[2024-06-06 23:11] LABS: BILIRUBIN,TOTAL 0.2 mg/dL (0.2-1); TOT PROT 7.3 g/dl (6.4-8.2)
[2024-06-07] MEDS ORDERED: ACETAMINOPHEN INJECTION 100 ML ONE (00:02)
[2024-06-07] MEDS ORDERED: MAGNESIUM SULFATE IN WATER 2 GM/50 ML IVPB IVPB ONE (00:02)
[2024-06-07] MEDS: ACETAMINOPHEN 1000 MG/100 ML BAG IVPB ONE (00:09)
[2024-06-07] MEDS: MAGNESIUM SULFATE IN WATER 2 GM/50 ML IVPB IVPB ONE (00:09)
[2024-06-07 02:16] LABS: EPI CELLS 3 /uL (0-25.1); HYALINE CASTS 1 /uL (0-3.1); PH,URINE 5.5 (5.0-8.0); URINE APPEARANCE TURBID; URINE BACTERIA >9,000 /uL (0-1359); URINE BILIRUBIN NEGATIVE (NEGATIVE); URINE COLOR YELLOW; URINE GLUCOSE (UA) 2+ (NEGATIVE); URINE KETONE NEGATIVE (NEGATIVE); URINE LEUK ESTERASE 3+ (NEGATIVE); URINE NITRITE NEGATIVE (NEGATIVE); URINE PROTEIN 2+ (NEGATIVE); URINE RBC 2803 /uL (0-23.9); URINE UROBILINOGEN 0.2 mg/dL (0.2-1.0); URINE WBC 15791 /uL (0-25.8)
[2024-06-07] MEDS ORDERED: MEROPENEM 1 GM VIAL (RESTRICTED TO ID) IVPB ONE (02:51)
[2024-06-07] MEDS: MEROPENEM 1 GM in DEXTROSE 5%-WATER 100 ML IVPB ONE (03:01)
[2024-06-07] MEDS ORDERED: DOCUSATE SODIUM 100 MG CAPSULE (FP) PO PRN (04:14)
[2024-06-07] MEDS ORDERED: ACETAMINOPHEN 325 MG TABLET (FP) PO PRN (04:14)
[2024-06-07 07:15] LABS: BASO % 0.5 % (0-2.0); EOS % 2.7 % (0-4.5); HEMATOCRIT 31.1 % (32.4-45.2); LYMPH % 35.8 % (8-40); MCH 29.4 pg (25.7-33.7); MCHC 32.2 g/dl (32.0-36.0); MEAN CELL VOLUME 91.2 fl (80-96); MONO % 12.2 % (3.8-10.2); NEUT % 48.8 % (42.8-82.8); PLATELET COUNT 214 10^3/uL (134-434); RBC 3.41 M/mm3 (3.60-5.2); WHITE BLOOD COUNT 7.8 K/mm3 (4.0-10.0)
[2024-06-07 07:59] LABS: CALCIUM 9.3 mg/dL (8.5-10.1)
[2024-06-07 08:00] LABS: BLOOD UREA NITROGEN 14.9 mg/dL (7-18)
[2024-06-07 08:03] LABS: CREATININE 0.8 mg/dL (0.55-1.3); PHOSPHOROUS 2.8 mg/dL (2.5-4.9)
[2024-06-07] MEDS: INSULIN ASPART SLIDING SCALE (NOVOLOG) 1 VIAL SQ SCH (08:21)
[2024-06-07 08:33] LABS: ACTIVATED PTT 27.5 SECONDS (25.2-36.5)
[2024-06-07] MEDS ORDERED: D5-1/2NS+20 MEQ KCL - 20 MEQ/1,000 ML INFUS.BAG IV SCH (09:00)
[2024-06-07] MEDS: CITALOPRAM HYDROBROMIDE 20 MG TABLET PO SCH (10:43)
[2024-06-07] MEDS: LOSARTAN POTASSIUM 25 MG TABLET PO SCH (10:43)
[2024-06-07] MEDS: PANTOPRAZOLE 40 MG TABLET PO SCH (10:43)
[2024-06-07] MEDS: metoPROLOL SUCCINATE 25 MG TAB.SR.24H (FP) PO SCH (10:43)
[2024-06-07] MEDS: CALCIUM 250MG/VIT-D 125 UNITS 1 COMBO TABLET PO SCH (10:44)
[2024-06-07] MEDS: FERROUS GLUCONATE 324 MG TAB (FP) PO SCH (10:44)
[2024-06-07] MEDS: HEPARIN NA (PORCINE) 5,000 UNITS/ML 1ML VIAL SQ SCH (10:45)
[2024-06-07 11:17] VITALS: BMI 20.9
[2024-06-07] MEDS: POTASSIUM CHLORIDE 10 MEQ in SODIUM CHLORIDE 0.45% 1,000 ML IVPB SCH (12:07)
[2024-06-07] MEDS: CALCITONIN - SALMON SYNTHETIC 200 UNITS/SPRAY NS SCH (12:43)
[2024-06-07] MEDS: ROSUVASTATIN CA 5 MG TABLET PO SCH (22:47)
[2024-06-08 09:16] LABS: ABSOLUTE IMMATURE GRANULOCYTES 0.05 x10^3/uL (0.0-0.031); BASOPHILS # 0.05 x10^3/uL (0.01-0.08); EOSINOPHILS # 0.11 x10^3/uL (0.04-0.36); HEMATOCRIT 31.2 % (34.1-44.9); HEMOGLOBIN 9.7 g/dL (11.2-15.7); MCHC 31.1 g/dl (32.2-35.5); MEAN CELL VOLUME 93.7 fl (79.4-94.8); MEAN PLT VOLUME 9.2 fl (9.4-12.3); MONOCYTE % 10.3 % (4.7-12.5); PLATELET COUNT # 179 x10^3/uL (182-369); RDW 15.3 % (12.5-17.0)
[2024-06-08 09:30] LABS: POTASSIUM 4.3 mmol/L (3.5-5.1)
[2024-06-08 09:33] LABS: CALCIUM 9.6 mg/dL (8.5-10.1)
[2024-06-08 09:34] LABS: ALBUMIN 2.5 g/dl (3.4-5.0); BLOOD UREA NITROGEN 9.6 mg/dL (7-18)
[2024-06-08 09:37] LABS: CREATININE 0.8 mg/dL (0.55-1.3)
[2024-06-08 09:39] LABS: BILIRUBIN,TOTAL 0.3 mg/dL (0.2-1); TOT PROT 6.8 g/dl (6.4-8.2)
[2024-06-08] MEDS: CALCITONIN - SALMON SYNTHETIC 200 UNITS/SPRAY NS SCH (10:07)
[2024-06-09 10:47] LABS: HEMATOCRIT 34.2 % (34.1-44.9); HEMOGLOBIN 10.6 g/dL (11.2-15.7); MEAN CELL VOLUME 93.2 fl (79.4-94.8); MEAN PLT VOLUME 8.9 fl (9.4-12.3); PLATELET COUNT # 195 x10^3/uL (182-369); RDW 15.2 % (12.5-17.0)
[2024-06-09 11:29] LABS: MONOCYTE # 0.68 x10^3/uL (0.24-0.86)
[2024-06-09 15:17] VITALS: BP 148/65; PULSE 72; RESP 18; TEMP 98.2
== END 2024-06-09 13:12 | disposition home health service (06) | DRG 690 ==
LOC: JER 21:32 → JERBED 06-07 02:43 → J8W 06-07 09:05
PROVIDERS: ADMIT Internal Medicine; ATTEND Family Medicine
DX: N39.0 Urinary tract infection, site not specified (principal); B96.20 Unspecified Escherichia coli [E. coli] as the cause of diseases classified elsewhere; I10 Essential (primary) hypertension; E78.5 Hyperlipidemia, unspecified; F03.90 Unspecified dementia, unspecified severity, without behavioral disturbance, psychotic disturbance, mood disturbance, and anxiety; E11.9 Type 2 diabetes mellitus without complications; S00.83XA Contusion of other part of head, initial encounter; M25.551 Pain in right hip; E83.42 Hypomagnesemia; W08.XXXA Fall from other furniture, initial encounter; Y92.099 Unspecified place in other non-institutional residence as the place of occurrence of the external cause; Y99.9 Unspecified external cause status; Z85.42 Personal history of malignant neoplasm of other parts of uterus
CPT/HCPCS: 0241U-QW; 36415; 70450-TC; 71045-TC-FY; 72125-TC; 72170-TC-FY; 72192-TC; 73502-TC-RT-FY; 80048; 80053; 81003; 82962; 83735; 84100; 84443; 84484; 85025; 85610; 85730; 87086; 87186; 93005; 93010; 97116-GP; 97161-GP; 99285-25; J0131; J1644

== ENCOUNTER 2024-06-26 10:56 | Inpatient (IN) | payer OTHER ==
[2024-06-26 12:01] LABS: ABSOLUTE IMMATURE GRANULOCYTES 0.05 x10^3/uL (0.0-0.031); BASOPHILS # 0.07 x10^3/uL (0.01-0.08); EOSINOPHIL % 3.4 % (0.7-5.8); EOSINOPHILS # 0.33 x10^3/uL (0.04-0.36); HEMATOCRIT 30.7 % (34.1-44.9); HEMOGLOBIN 9.4 g/dL (11.2-15.7); MCHC 30.6 g/dl (32.2-35.5); MEAN CELL VOLUME 94.8 fl (79.4-94.8); MEAN PLT VOLUME 8.8 fl (9.4-12.3); MONOCYTE # 1.04 x10^3/uL (0.24-0.86); MONOCYTE % 10.7 % (4.7-12.5); PLATELET COUNT 206 x10^3/uL (182-369); RDW 14.8 % (12.5-17.0)
[2024-06-26 12:19] LABS: POTASSIUM 5.4 mmol/L (3.5-5.1)
[2024-06-26 12:21] LABS: ALBUMIN 2.7 g/dl (3.4-5.0); BLOOD UREA NITROGEN 27.3 mg/dL (7-18); CALCIUM 9.8 mg/dL (8.5-10.1); MAGNESIUM 1.8 mg/dL (1.8-2.4)
[2024-06-26 12:24] LABS: CREATININE 1.3 mg/dL (0.55-1.3)
[2024-06-26 12:27] LABS: BILIRUBIN,TOTAL 0.4 mg/dL (0.2-1); TOT PROT 7.2 g/dl (6.4-8.2)
[2024-06-26 12:45] LABS: EPI CELLS 4 /uL (0-25.1); HYALINE CASTS 1 /uL (0-3.1); URINE APPEARANCE TURBID; URINE BACTERIA >9,000 /uL (0-1359); URINE BILIRUBIN NEGATIVE (NEGATIVE); URINE COLOR YELLOW; URINE GLUCOSE (UA) NEGATIVE (NEGATIVE); URINE KETONE NEGATIVE (NEGATIVE); URINE LEUK ESTERASE 3+ (NEGATIVE); URINE NITRITE POSITIVE (NEGATIVE); URINE PROTEIN 2+ (NEGATIVE); URINE UROBILINOGEN 0.2 mg/dL (0.2-1.0); URINE WBC 22429 /uL (0-25.8)
[2024-06-26] MEDS ORDERED: SODIUM ZIRCONIUM CYCLOSILICATE (LOKELMA) 5 GM PACKET ONE (13:04)
[2024-06-26] MEDS: SODIUM ZIRCONIUM CYCLOSILICATE (LOKELMA) 5 GM PACKET PO ONE (13:15)
[2024-06-26 14:06] LABS: URINE RBC 2836.5 /uL (0-23.9); YEAST PRESENT (NEGATIVE)
[2024-06-26] MEDS: PIPERACILLIN/TAZOB 4.5 GM 4.5 GM in DEXTROSE 5%-WATER 100 ML IVPB ONE (14:11)
[2024-06-26] MEDS: LACTATED RINGERS SOLUTION 1,000 ML/1,000 ML INFUS.BAG IV SCH (17:26)
[2024-06-26] MEDS: ERTAPENEM SODIUM 0.5 GM in SODIUM CHLORIDE 50 ML IVPB SCH (17:27)
[2024-06-26] MEDS ORDERED: PIPERACILLIN/TAZOB 3.375 GM 3.375 GM in DEXTROSE 5%-WATER - 50 ML IVPB SCH (18:00)
[2024-06-26] MEDS ORDERED: PIPERACILLIN/TAZOB 3.375 GM 50 ML IVPB SCH (18:00)
[2024-06-26] MEDS: ROSUVASTATIN CA 5 MG TABLET PO SCH (22:55)
[2024-06-27 09:32] LABS: ABSOLUTE IMMATURE GRANULOCYTES 0.04 x10^3/uL (0.0-0.031); BASOPHILS # 0.04 x10^3/uL (0.01-0.08); EOSINOPHIL % 2.9 % (0.7-5.8); EOSINOPHILS # 0.24 x10^3/uL (0.04-0.36); HEMATOCRIT 31.8 % (34.1-44.9); HEMOGLOBIN 9.6 g/dL (11.2-15.7); MCHC 30.2 g/dl (32.2-35.5); MEAN CELL VOLUME 93.8 fl (79.4-94.8); MEAN PLT VOLUME 9.5 fl (9.4-12.3); MONOCYTE # 0.82 x10^3/uL (0.24-0.86); MONOCYTE % 9.8 % (4.7-12.5); PLATELET COUNT 214 x10^3/uL (182-369); RDW 14.6 % (12.5-17.0)
[2024-06-27] MEDS: metoPROLOL SUCCINATE 25 MG TAB.SR.24H (FP) PO SCH (09:45)
[2024-06-27] MEDS: CITALOPRAM HYDROBROMIDE 20 MG TABLET PO SCH (09:45)
[2024-06-27 09:56] LABS: POTASSIUM 4.6 mmol/L (3.5-5.1)
[2024-06-27] MEDS ORDERED: PATIENT'S OWN MEDICATION (NON-FORMULARY) (Vibegron [Gemtesa] 75 MG Tablet) PO SCH (10:00)
[2024-06-27 10:07] LABS: ALBUMIN 2.6 g/dl (3.4-5.0); CALCIUM 9.6 mg/dL (8.5-10.1)
[2024-06-27 10:08] LABS: BLOOD UREA NITROGEN 20.6 mg/dL (7-18); MAGNESIUM 1.6 mg/dL (1.8-2.4)
[2024-06-27 10:11] LABS: PHOSPHOROUS 3.7 mg/dL (2.5-4.9)
[2024-06-27 10:12] LABS: BILIRUBIN,TOTAL 0.6 mg/dL (0.2-1); TOT PROT 6.8 g/dl (6.4-8.2)
[2024-06-27 15:35] VITALS: BMI 19.5
[2024-06-27] MEDS: IRON SUCROSE INJECTION 200 MG in SODIUM CHLORIDE 100 ML IVPB ONE (15:36)
[2024-06-27] MEDS: MAGNESIUM 1GM/D5W 100ML - 100 ML IVPB IVPB ONE (21:30)
[2024-06-29 09:04] LABS: HEMOGLOBIN 11.5 g/dL (11.2-15.7); MCHC 31.1 g/dl (32.2-35.5); MEAN CELL VOLUME 92.3 fl (79.4-94.8); MEAN PLT VOLUME 9.4 fl (9.4-12.3); PLATELET COUNT 248 x10^3/uL (182-369); RDW 14.2 % (12.5-17.0)
[2024-06-29 09:25] LABS: POTASSIUM 4.2 mmol/L (3.5-5.1)
[2024-06-29 09:33] LABS: CALCIUM 10.3 mg/dL (8.5-10.1)
[2024-06-29 09:34] LABS: BLOOD UREA NITROGEN 14.3 mg/dL (7-18); MAGNESIUM 1.8 mg/dL (1.8-2.4)
[2024-06-29 10:06] VITALS: RESP 20
[2024-06-29] MEDS: FAMOTIDINE 10 MG TABLET PO SCH (10:31)
[2024-06-29 15:10] VITALS: BP 100/61; PULSE 75; TEMP 98.2
== END 2024-06-29 16:14 | disposition home health service (06) | DRG 690 ==
LOC: JER 10:56 → JERBED 13:04 → J8W 14:59
PROVIDERS: ADMIT Internal Medicine; ATTEND Internal Medicine
DX: N39.0 Urinary tract infection, site not specified (principal); E11.9 Type 2 diabetes mellitus without complications; E78.5 Hyperlipidemia, unspecified; B96.20 Unspecified Escherichia coli [E. coli] as the cause of diseases classified elsewhere; F03.90 Unspecified dementia, unspecified severity, without behavioral disturbance, psychotic disturbance, mood disturbance, and anxiety; R62.7 Adult failure to thrive
CPT/HCPCS: 0241U-QW; 36415; 70450-TC; 71045-TC-FY; 80048; 80053; 81003; 82728; 83540; 83550; 83735; 84100; 84466; 84484; 85025; 85027; 87040; 87086; 87186; 93005; 93010; 97116-GP; 97161-GP; 99285-25; J1756

== ENCOUNTER 2024-08-01 08:16 | Inpatient (IN) | payer OTHER ==
[2024-08-01] MEDS: SODIUM CHLORIDE 0.9% 500 ML INFUS.BAG IV ONE ×2 (09:00→11:56)
[2024-08-01] MEDS ORDERED: PIPERACILLIN/TAZOB 4.5 GM 4.5 GM/100 ML BAG IVPB ONE (09:23)
[2024-08-01] MEDS ORDERED: VANCOMYCIN 1 GM PREMIX (F) 1 GM/200 ML BAG ONE (09:23)
[2024-08-01 09:28] LABS: VENOUS BASE EXCESS -5.4 mmol/L (-2-2); VENOUS O2 SATURATION 64.7 % (70-80); VENOUS PCO2 45.8 mmHg (38-52); VENOUS PH 7.282 (7.310-7.410)
[2024-08-01 09:32] LABS: HEMOGLOBIN 10.1 g/dL (11.2-15.7); MCHC 30.6 g/dl (32.2-35.5); MEAN CELL VOLUME 94.3 fl (79.4-94.8); MEAN PLT VOLUME 9.5 fl (9.4-12.3); PLATELET COUNT 201 x10^3/uL (182-369); RDW 15.3 % (12.5-17.0)
[2024-08-01] MEDS: VANCOMYCIN 1,000 MG in DEXTROSE 5%-WATER - 200 ML IVPB ONE (09:32)
[2024-08-01 09:37] LABS: EPI CELLS >36 /uL (0-25.1); HYALINE CASTS 170 /uL (0-3.1); URINE APPEARANCE TURBID; URINE BACTERIA 45 /uL (0-1359); URINE BILIRUBIN NEGATIVE (NEGATIVE); URINE COLOR YELLOW; URINE GLUCOSE (UA) TRACE (NEGATIVE); URINE KETONE TRACE (NEGATIVE); URINE LEUK ESTERASE 3+ (NEGATIVE); URINE NITRITE NEGATIVE (NEGATIVE); URINE PROTEIN 3+ (NEGATIVE); URINE RBC 48 /uL (0-23.9); URINE UROBILINOGEN 0.2 mg/dL (0.2-1.0); URINE WBC 6428 /uL (0-25.8)
[2024-08-01 09:40] LABS: INR 1.14 (0.83-1.09); PROTHROMBIN TIME (PATIENT) 12.5 SEC (9.7-13.0)
[2024-08-01 09:42] LABS: ACTIVATED PTT 24.2 SECONDS (25.2-36.5)
[2024-08-01 09:51] LABS: YEAST rare (NEGATIVE)
[2024-08-01 09:57] LABS: POTASSIUM 4.4 mmol/L (3.5-5.1)
[2024-08-01 09:59] LABS: ALBUMIN 2.6 g/dl (3.4-5.0); BLOOD UREA NITROGEN 31.3 mg/dL (7-18); CALCIUM 10.1 mg/dL (8.5-10.1)
[2024-08-01] MEDS: PIPERACILLIN/TAZOB 4.5 GM 4.5 GM in DEXTROSE 5%-WATER 100 ML IVPB ONE (10:00)
[2024-08-01 10:02] LABS: CREATININE 2.7 mg/dL (0.55-1.3)
[2024-08-01 10:04] LABS: BILIRUBIN,TOTAL 0.3 mg/dL (0.2-1); TOT PROT 7.5 g/dl (6.4-8.2)
[2024-08-01] MEDS: LACTATED RINGERS SOLUTION 1,000 ML/1,000 ML INFUS.BAG IV SCH (22:36)
[2024-08-01] MEDS: MEMANTINE HCL 5 MG TABLET (UD) PO SCH (22:36)
[2024-08-01] MEDS: HEPARIN NA (PORCINE) 5,000 UNITS/ML 1ML VIAL SQ SCH (22:36)
[2024-08-01] MEDS: ROSUVASTATIN CA 5 MG TABLET PO SCH (22:36)
[2024-08-02] MEDS: PIPERACILLIN/TAZOB 3.375 GM 50 ML IVPB SCH (02:54)
[2024-08-02 08:44] LABS: ABSOLUTE IMMATURE GRANULOCYTES 0.12 x10^3/uL (0.0-0.031); EOSINOPHIL % 0.9 % (0.7-5.8); EOSINOPHILS # 0.16 x10^3/uL (0.04-0.36)
[2024-08-02 08:46] LABS: BASOPHILS # 0.08 x10^3/uL (0.01-0.08); HEMATOCRIT 33.4 % (34.1-44.9); MCHC 29.9 g/dl (32.2-35.5); MEAN CELL VOLUME 94.9 fl (79.4-94.8); MONOCYTE # 1.22 x10^3/uL (0.24-0.86); MONOCYTE % 6.9 % (4.7-12.5); RDW 15.2 % (12.5-17.0)
[2024-08-02 09:43] LABS: POTASSIUM 3.9 mmol/L (3.5-5.1)
[2024-08-02 10:07] LABS: ALBUMIN 2.2 g/dl (3.4-5.0)
[2024-08-02 10:08] LABS: BLOOD UREA NITROGEN 23.8 mg/dL (7-18); MAGNESIUM 1.5 mg/dL (1.8-2.4)
[2024-08-02 10:11] LABS: CREATININE 1.5 mg/dL (0.55-1.3); PHOSPHOROUS 2.3 mg/dL (2.5-4.9)
[2024-08-02 10:12] LABS: BILIRUBIN,TOTAL 0.5 mg/dL (0.2-1); TOT PROT 6.4 g/dl (6.4-8.2)
[2024-08-02] MEDS: CITALOPRAM HYDROBROMIDE 20 MG TABLET PO SCH (10:56)
[2024-08-02] MEDS: ERTAPENEM SODIUM 0.5 GM in SODIUM CHLORIDE 50 ML IVPB SCH (18:00)
[2024-08-02] MEDS: PIPERACILLIN/TAZOB 3.375 GM 3.375 GM in DEXTROSE 5%-WATER - 50 ML IVPB SCH (18:03)
[2024-08-03 08:03] LABS: HEMATOCRIT 27.6 % (34.1-44.9); HEMOGLOBIN 8.8 g/dL (11.2-15.7); MCHC 31.9 g/dl (32.2-35.5); MEAN CELL VOLUME 90.8 fl (79.4-94.8); MEAN PLT VOLUME 9.5 fl (9.4-12.3); PLATELET COUNT 203 x10^3/uL (182-369); RDW 14.6 % (12.5-17.0)
[2024-08-03 08:25] LABS: POTASSIUM 3.1 mmol/L (3.5-5.1)
[2024-08-03 08:28] LABS: ALBUMIN 2.2 g/dl (3.4-5.0); BLOOD UREA NITROGEN 13.6 mg/dL (7-18); CALCIUM 9.2 mg/dL (8.5-10.1)
[2024-08-03 08:33] LABS: BILIRUBIN,TOTAL 0.4 mg/dL (0.2-1); TOT PROT 6.3 g/dl (6.4-8.2)
[2024-08-03] MEDS: MAGNESIUM OXIDE 400 MG TABLET (FP) PO ONE (12:48)
[2024-08-03] MEDS: LACTATED RINGERS SOLUTION 1,000 ML/1,000 ML INFUS.BAG IV SCH (12:49)
[2024-08-03] MEDS: POTASSIUM CHLORIDE ORAL LIQUID 20 MEQ/15 ML PO ONE (12:49)
[2024-08-03 15:21] VITALS: BMI 22.9
[2024-08-03] MEDS: ACETAMINOPHEN 1000 MG/100 ML BAG IVPB ONE (19:38)
[2024-08-05 07:30] VITALS: BP 132/55; PULSE 60; RESP 18; TEMP 98.2
== END 2024-08-05 10:06 | disposition home health service (06) | DRG 689 ==
LOC: JER 08:16 → JERBED 09:57 → J7W 17:19
PROVIDERS: ADMIT Internal Medicine; ATTEND Internal Medicine
DX: N39.0 Urinary tract infection, site not specified (principal); E43 Unspecified severe protein-calorie malnutrition; G92.8 Other toxic encephalopathy; E78.5 Hyperlipidemia, unspecified; F03.90 Unspecified dementia, unspecified severity, without behavioral disturbance, psychotic disturbance, mood disturbance, and anxiety; I12.9 Hypertensive chronic kidney disease with stage 1 through stage 4 chronic kidney disease, or unspecified chronic kidney disease; N18.30 Chronic kidney disease, stage 3 unspecified; R80.9 Proteinuria, unspecified; E11.22 Type 2 diabetes mellitus with diabetic chronic kidney disease; R53.1 Weakness; D50.9 Iron deficiency anemia, unspecified; Z68.23 Body mass index [BMI] 23.0-23.9, adult; E86.0 Dehydration; L89.151 Pressure ulcer of sacral region, stage 1; Z85.41 Personal history of malignant neoplasm of cervix uteri
CPT/HCPCS: 0241U-QW; 36415; 70450-TC; 71045-TC-FY; 71250-TC; 74176-TC; 80053; 81003; 82728; 82803; 82962; 83540; 83550; 83605; 83735; 84100; 84484; 85025; 85027; 85610; 85730; 86850; 86900; 86901; 87040; 87045; 87046; 87077; 87086; 87324; 87449; 87493; 93005; 93010; 97116-GP; 97162-GP; 99291; J0131; J1644

== ENCOUNTER 2024-08-14 11:13 | Inpatient (IN) | payer OTHER ==
[2024-08-14 12:22] LABS: ABSOLUTE IMMATURE GRANULOCYTES 0.21 x10^3/uL (0.0-0.031); BASOPHILS # 0.05 x10^3/uL (0.01-0.08); HEMOGLOBIN 9.4 g/dL (11.2-15.7); MCHC 31.3 g/dl (32.2-35.5); MEAN CELL VOLUME 91.7 fl (79.4-94.8); MEAN PLT VOLUME 10.2 fl (9.4-12.3); MONOCYTE # 0.85 x10^3/uL (0.24-0.86); PLATELET COUNT 359 x10^3/uL (182-369); RDW 15.6 % (12.5-17.0)
[2024-08-14 12:25] LABS: VENOUS O2 SATURATION 88.6 % (70-80); VENOUS PCO2 32.9 mmHg (38-52); VENOUS PH 7.368 (7.310-7.410)
[2024-08-14 12:29] LABS: INR 1.17 (0.83-1.09); PROTHROMBIN TIME (PATIENT) 12.7 SEC (9.7-13.0)
[2024-08-14 12:32] LABS: ACTIVATED PTT 24.3 SECONDS (25.2-36.5)
[2024-08-14 12:45] LABS: POTASSIUM 4.8 mmol/L (3.5-5.1)
[2024-08-14 12:47] LABS: ALBUMIN 2.2 g/dl (3.4-5.0); BLOOD UREA NITROGEN 38.1 mg/dL (7-18)
[2024-08-14 12:50] LABS: CREATININE 1.3 mg/dL (0.55-1.3)
[2024-08-14 12:52] LABS: BILIRUBIN,TOTAL 0.3 mg/dL (0.2-1); TOT PROT 7.2 g/dl (6.4-8.2)
[2024-08-14] MEDS ORDERED: PIPERACILLIN/TAZOB 4.5 GM 4.5 GM/100 ML BAG IVPB ONE (13:16)
[2024-08-14] MEDS ORDERED: VANCOMYCIN 1 GM PREMIX (F) 1 GM/200 ML BAG ONE (13:17)
[2024-08-14] MEDS: LACTATED RINGERS SOLUTION 1000 ML INFUS.BAG IV ONE ×2 (13:26→15:10)
[2024-08-14] MEDS: PIPERACILLIN/TAZOB 4.5 GM 4.5 GM in DEXTROSE 5%-WATER 100 ML IVPB ONE (13:26)
[2024-08-14 13:52] LABS: CALCIUM 10.7 mg/dL (8.5-10.1)
[2024-08-14] MEDS: VANCOMYCIN 1,000 MG in DEXTROSE 5%-WATER - 250 ML IVPB ONE (13:56)
[2024-08-14 14:49] LABS: EPI CELLS >36 /uL (0-25.1); HYALINE CASTS 605 /uL (0-3.1); PH,URINE 5.5 (5.0-8.0); URINE APPEARANCE TURBID; URINE BACTERIA 83 /uL (0-1359); URINE BILIRUBIN NEGATIVE (NEGATIVE); URINE COLOR ORANGE; URINE GLUCOSE (UA) 2+ (NEGATIVE); URINE KETONE TRACE (NEGATIVE); URINE LEUK ESTERASE 2+ (NEGATIVE); URINE NITRITE NEGATIVE (NEGATIVE); URINE PROTEIN 2+ (NEGATIVE); URINE UROBILINOGEN 0.2 mg/dL (0.2-1.0); URINE WBC 29794 /uL (0-25.8)
[2024-08-14 14:50] LABS: URINE RBC 1100 /uL (0-23.9); YEAST PRESENT (NEGATIVE)
[2024-08-14] MEDS ORDERED: MEROPENEM 1 GM VIAL (RESTRICTED TO ID) IVPB ONE (15:26)
[2024-08-14] MEDS: MEROPENEM 1 GM in DEXTROSE 5%-WATER 100 ML IVPB ONE (15:43)
[2024-08-14 17:12] VITALS: BMI 19.5
[2024-08-14] MEDS ORDERED: INSULIN ASPART SLIDING SCALE (NOVOLOG) 1 VIAL SQ ONE (18:51)
[2024-08-14] MEDS: INSULIN ASPART SLIDING SCALE (NOVOLOG) 1 VIAL SQ SCH (19:15)
[2024-08-14] MEDS ORDERED: MEROPENEM 1 GM in DEXTROSE 5%-WATER 100 ML IVPB SCH (22:00)
[2024-08-14] MEDS: INSULIN GLARGINE (LANTUS) 100 UNITS/ML UNITS SQ SCH (22:09)
[2024-08-14] MEDS: MEMANTINE HCL 10 MG TABLET (FP) PO SCH (22:14)
[2024-08-15] MEDS: MEROPENEM 1 GM in DEXTROSE 5%-WATER 100 ML IVPB SCH (01:19)
[2024-08-15 09:48] LABS: ABSOLUTE IMMATURE GRANULOCYTES 0.12 x10^3/uL (0.0-0.031); BASOPHILS # 0.03 x10^3/uL (0.01-0.08); EOSINOPHIL % 0.6 % (0.7-5.8); EOSINOPHILS # 0.08 x10^3/uL (0.04-0.36); MEAN CELL VOLUME 91.5 fl (79.4-94.8); MONOCYTE # 0.85 x10^3/uL (0.24-0.86); MONOCYTE % 6.4 % (4.7-12.5); PLATELET COUNT 336 x10^3/uL (182-369); RDW 15.6 % (12.5-17.0)
[2024-08-15] MEDS: FOLIC ACID 1 MG TABLET (FP) PO SCH (10:02)
[2024-08-15 10:12] LABS: POTASSIUM 4.2 mmol/L (3.5-5.1)
[2024-08-15 10:14] LABS: CALCIUM 10.9 mg/dL (8.5-10.1)
[2024-08-15 10:15] LABS: ALBUMIN 1.9 g/dl (3.4-5.0); BLOOD UREA NITROGEN 36.6 mg/dL (7-18)
[2024-08-15 10:19] LABS: BILIRUBIN,TOTAL 0.3 mg/dL (0.2-1); TOT PROT 6.3 g/dl (6.4-8.2)
[2024-08-15 10:54] LABS: CREATININE 1.1 mg/dL (0.55-1.3)
[2024-08-15] MEDS: DEXTROSE 5%-WATER - 1,000 ML IV SCH (13:27)
[2024-08-15] MEDS: ACETAMINOPHEN 1000 MG/100 ML BAG IVPB ONE (18:23)
[2024-08-15] MEDS ORDERED: ACETAMINOPHEN 325 MG TABLET (FP) PO PRN (18:30)
[2024-08-16 08:17] LABS: HEMOGLOBIN 8.6 g/dL (11.2-15.7); MCHC 30.7 g/dl (32.2-35.5); MEAN CELL VOLUME 92.7 fl (79.4-94.8); PLATELET COUNT 288 x10^3/uL (182-369); RDW 15.6 % (12.5-17.0)
[2024-08-16 08:25] LABS: POTASSIUM 3.6 mmol/L (3.5-5.1)
[2024-08-16 08:29] LABS: ALBUMIN 1.9 g/dl (3.4-5.0); BLOOD UREA NITROGEN 29.1 mg/dL (7-18); CALCIUM 9.9 mg/dL (8.5-10.1); MAGNESIUM 1.5 mg/dL (1.8-2.4)
[2024-08-16 08:33] LABS: PHOSPHOROUS 1.7 mg/dL (2.5-4.9)
[2024-08-16 08:34] LABS: BILIRUBIN,TOTAL 0.3 mg/dL (0.2-1); TOT PROT 5.9 g/dl (6.4-8.2)
[2024-08-16] MEDS: MAGNESIUM OXIDE 400 MG TABLET (FP) PO ONE (11:56)
[2024-08-16] MEDS: NAPH,MB-DB/K PH,MBDB POWDER PACKET PO ONE (12:58)
[2024-08-16] MEDS: MAGNESIUM 2GM/50ML STERILE WATER IVPB IVPB ONE (14:10)
[2024-08-16] MEDS: KCL 10 MEQ IVPB 10 MEQ/100 ML INFUS.BAG IVPB SCH (15:02)
[2024-08-16] MEDS: MEROPENEM 1 GM in DEXTROSE 5%-WATER 100 ML IVPB SCH (21:14)
[2024-08-16] MEDS: PANTOPRAZOLE 40 MG TABLET PO SCH (21:44)
[2024-08-17 08:39] LABS: ABSOLUTE IMMATURE GRANULOCYTES 0.14 x10^3/uL (0.0-0.031); BASOPHILS # 0.03 x10^3/uL (0.01-0.08); EOSINOPHILS # 0.15 x10^3/uL (0.04-0.36); HEMATOCRIT 29.8 % (34.1-44.9); HEMOGLOBIN 9.2 g/dL (11.2-15.7); MCHC 30.9 g/dl (32.2-35.5); MEAN CELL VOLUME 91.7 fl (79.4-94.8); MEAN PLT VOLUME 9.8 fl (9.4-12.3); MONOCYTE # 0.53 x10^3/uL (0.24-0.86); MONOCYTE % 7.1 % (4.7-12.5); PLATELET COUNT 288 x10^3/uL (182-369); RDW 15.7 % (12.5-17.0)
[2024-08-17 09:04] LABS: POTASSIUM 4.2 mmol/L (3.5-5.1)
[2024-08-17 09:15] LABS: CALCIUM 10.2 mg/dL (8.5-10.1)
[2024-08-17 09:16] LABS: ALBUMIN 1.9 g/dl (3.4-5.0); BLOOD UREA NITROGEN 22.9 mg/dL (7-18); MAGNESIUM 2.2 mg/dL (1.8-2.4)
[2024-08-17 09:20] LABS: BILIRUBIN,TOTAL 0.3 mg/dL (0.2-1)
[2024-08-17 15:01] VITALS: BP 114/59; PULSE 74; RESP 18; TEMP 97.3
== END 2024-08-17 15:54 | disposition home health service (06) | DRG 193 ==
LOC: JER 11:13 → J8W 15:04
PROVIDERS: ATTEND Family Medicine
DX: J18.9 Pneumonia, unspecified organism (principal); E43 Unspecified severe protein-calorie malnutrition; G92.8 Other toxic encephalopathy; N39.0 Urinary tract infection, site not specified; Z68.1 Body mass index [BMI] 19.9 or less, adult; E78.5 Hyperlipidemia, unspecified; F03.90 Unspecified dementia, unspecified severity, without behavioral disturbance, psychotic disturbance, mood disturbance, and anxiety; N31.9 Neuromuscular dysfunction of bladder, unspecified; I12.9 Hypertensive chronic kidney disease with stage 1 through stage 4 chronic kidney disease, or unspecified chronic kidney disease; R62.7 Adult failure to thrive; E11.65 Type 2 diabetes mellitus with hyperglycemia; D64.9 Anemia, unspecified; E11.22 Type 2 diabetes mellitus with diabetic chronic kidney disease; E86.0 Dehydration; N18.30 Chronic kidney disease, stage 3 unspecified
CPT/HCPCS: 0241U-QW; 36415; 71045-TC-FY; 80053; 81003; 82010; 82272; 82728; 82803; 82962; 83036; 83540; 83550; 83605; 83735; 84100; 84439; 84443; 84484; 85025; 85027; 85610; 85730; 86850; 86900; 86901; 87040; 87077; 87086; 87899; 97116-GP; 97162-GP; 99285-25; J0131